=== PATIENT | female | born 1945 | race Caucasian/White ===

== ENCOUNTER 2024-07-31 09:34 | Outpatient (AMB) | payer OTHER, SELFPAY ==
--- NOTE | 2024-07-31 09:47 | A.OFFVIS_ITS ---
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 Intake Note: New patient dx afib c/o fatigue and sob Telecommunications Project Manager Required: No Chief Strategy Officer: Chief Strategy Officer Present Accompanied by: Sister Allergies No Known Allergies Allergy (Verified 07/31/24 10:00) Medication List - Last Reconciled 07/31/24 by Fidencio Shabazz MD amlodipine (Norvasc) 5 mg PO DAILY apixaban (Eliquis) 5 mg PO BID cholecalciferol (vitamin D3) 50 mcg PO DAILY furosemide 20 mg PO DAILY gabapentin 300 mg PO TID losartan-hydrochlorothiazide 100-12.5 mg 1 tab PO DAILY metoprolol succinate ER 25 mg PO DAILY mirabegron ER (Myrbetriq) 50 mg PO DAILY omega 5-aoj-rrm-fish oil 1,200 (144-216) mg (Fish Oil) caps PO sertraline 200 mg PO DAILY HPI Comments Details: Thank you for referring Jane in cardiology consultation today for management of atrial fibrillation. She is a pleasant 78-year-old female with prior history of longstanding hypertension, sleep apnea on CPAP, obesity, hip and back arthritis which limits her activity level, has been having symptoms of palpitations mostly at nighttime which wakes her up sometimes. This is been going on for about a year. She initially had a Holter monitor which did not show any significant abnormality. She had subsequent Holter monitor which confirmed atrial fibrillation with a total burden of 3%. She was appropriately started on apixaban therapy. She self took herself off aspirin therapy. She has prior history of bilateral carotid endarterectomy, last 1 done in 2018. She said the last follow-up was about 1-2 years ago further carotid ultrasound. He has no prior history of heart failure, coronary artery disease, myocardial infarction, diabetes. She has no prior history of stroke. She said over the last 6 months or so she has been getting increasingly fatigued. He says symptoms are mostly of fatigue but when where she does work around the house she gets tired. She denies any exertional chest pain or shortness of breath. She denies any history of orthopnea, PND, leg edema. She takes all her medications regularly. She denies any bleeding issues or neurologic events. She says over the last 3 weeks she has tried dietary restriction has lost about 13 lb [facility] Medical History (Updated 07/31/24 @ 10:42 by Fidencio Shabazz MD) Paroxysmal atrial fibrillation Surgical History (Updated 07/31/24 @ 10:42 by Fidencio Shabazz MD) S/P carotid endarterectomy History of carotid endarterectomy Hx of tonsillectomy Family History Father Aortic valve defect Sister Aortic valve defect Mother Afib Social History Patient Tobacco Use Status: Never used Tobacco Review of Systems Const Denies chills, Denies daytime sleepiness, Denies fatigue, Denies fever(s), Denies frequent falls, Denies poor appetite, Denies snoring, Denies stops breathing during sleep, Denies weakness, Denies weight gain and Denies weight loss Eyes Denies loss of vision ENT Denies dizziness and Denies hearing loss Card Denies chest pain, Denies claudication, Denies leg edema, Denies lightheadedness, Denies palpitations, Denies dyspnea, Denies dyspnea on exertion and Denies orthopnea Resp Denies cough, Denies excessive phlegm production, Denies dyspnea, Denies dyspnea on exertion, Denies snoring and Denies wheezing GI Denies abdominal pain, Denies hematochezia, Denies change in bowel habits, Denies nausea and Denies vomiting Denies urinary frequency and Denies dysuria Musc Denies arthralgias, Denies muscle weakness, Denies numbness and Denies other (frequent falls) Skin/Breast Denies nail changes and Denies rash Neuro Denies Abnormal speech present, Denies dizziness, Denies frequent falls, Denies loss of vision, Denies memory loss, Denies numbness and Denies weakness Psych Denies depression and Denies memory loss Endo Denies fatigue and Denies palpitations Gumaro/Lymph Reports easy bruising and Reports other (anemia) Aller/Immun Denies wheezing Physical Exam Vital Signs: Last Vital Signs Pulse 69 07/31/24 09:53 BP 140/82 H 07/31/24 09:53 BMI result Body Mass Index 38.0 Const General: cooperative, comfortable, no acute distress, alert and awake Nutritional Appearance: obese Orientation/consciousness: patient oriented x3 Limitations: no limitations HEENT Head: Yes normocephalic and Yes atraumatic Neck Neck: Yes trachea midline, Yes supple and Yes no JVD Carotids: no bruits and other (Bilateral carotid endarterectomy scars) Resp Effort & Inspection: normal respiratory effort Auscultation: clear to auscultation bilaterally Cardio Jugular venous distension: no JVD Palpation: normal PMI Rate: regular rate Rhythm: regular rhythm Heart sounds: S1 normal heart sound present, S2 normal heart sound present, no click, no gallops, no murmurs and no rubs GI Inspection: Yes obesity Auscultation: normal bowel sounds Skin General skin exam: no rashes or lesions noted Neuro General: patient oriented x3 and no focal motor deficits Speech: No Abnormal speech present Extrem General: Yes no clubbing, cyanosis or edema Psych Appearance: grossly normal Office Procedures EKG Details: EKG shows normal sinus rhythm with normal EKG 58449-[id number], Complete Assessment & Plan Assessment & Plan (1) Paroxysmal atrial fibrillation: Code(s): I48.0 - Paroxysmal atrial fibrillation Category: Medical Plan: Patient's symptoms of palpitation mostly happening at nighttime, more recently symptoms have been control. Patient has been losing weight. She has risk factors of hypertension, obesity as sleep apnea to contribute to her atrial fibrillation burden. However she is trying to participate in weight loss program right now. I have also suggested to reach out to her sleep apnea center to assess for adequate sleep apnea therapy which might be contributing to his symptoms of fatigue. Continue metoprolol therapy. As symptoms have improved currently I would avoid any antiarrhythmic drug therapy. Will suggest underlying evaluation for structural heart disease given symptoms of fatigue and shortness of breath with exercise. Would suggest to undergo exercise myocardial perfusion imaging and an echocardiogram. This is to evaluate for myocardial ischemia which may guide therapy in terms of her symptoms as well as to guide antiarrhythmic drug therapy. Echocardiogram to evaluate biatrial chamber size as well as left ventricular systolic and diastolic function to guide therapy. Meanwhile I agree with full oral anticoagulation Eliquis. CHADSVASC score of 5. Benefits with oral anticoagulation therapy was discussed. She does not require dual therapy and I agree with stopping aspirin therapy at this point time. Continue metoprolol therapy. Avoidance of stimulants such as caffeine and alcohol was discussed. She understands agrees. If she remains significantly symptomatic, will guide and managed with antiarrhythmic drug therapy if needed. This was discussed with her. She understands and agrees. (2) S/P carotid endarterectomy: Code(s): Z98.890 - Other specified postprocedural states Category: Surgical Plan: Status post bilateral carotid endarterectomy. Suggest at least annual carotid duplex to assess for progressive atherosclerotic disease. Continue full oral anticoagulation with Eliquis. Consider high-intensity statin therapy such as atorvastatin 40/80 or rosuvastatin 20/40 mg daily to target goal LDL less than 70 mg/dL. Continue aggressive control blood pressure, see below. (3) HTN (hypertension): Code(s): I10 - Essential (primary) hypertension Category: Medical Plan: Longstanding hypertension which is currently well controlled on current therapy. Importance of good blood pressure control was discussed. Continue current therapy. Advised to monitor blood pressure at home maintain a log. Check with CPAP therapy. Low-salt diet was discussed. Advised to maintain activity and weight loss program. Will follow up in the clinic in 3 months time, sooner p.r.n.. Thank you for allowing me to partake in her care Coding Level of Care Code New Pt Level 4 (89608) Diagnoses Paroxysmal atrial fibrillation I48.0 S/P carotid endarterectomy Z98.890 HTN (hypertension) I10 CPT Codes EKG - CPT: 58551-[id number], Complete ([id number])
[2024-07-31 09:53] VITALS: BP 140/82; PULSE 69; BMI 38.0
== END 2024-07-31 10:34 | disposition home or self-care (01) ==
PROVIDERS: PCP Family Medicine; Visit Provider Internal Medicine Cardiovascular Disease
DX: I48.0 Paroxysmal atrial fibrillation (principal); Z98.890 Other specified postprocedural states; I10 Essential (primary) hypertension
CPT/HCPCS: 93010; 99204

== ENCOUNTER → 2024-07-31 09:34 | Outpatient (BNVA) | payer OTHER, SELFPAY | PROVIDERS: PCP Family Medicine; Visit Provider Internal Medicine Cardiovascular Disease | DX: I10 Essential (primary) hypertension (principal); I48.0 Paroxysmal atrial fibrillation; G47.30 Sleep apnea, unspecified; Z98.890 Other specified postprocedural states; Z99.89 Dependence on other enabling machines and devices | CPT/HCPCS: 93005; 99202 ==

== ENCOUNTER → 2024-11-28 07:44 | Outpatient (REF) | payer MEDICARE, SELFPAY ==
--- OUTSIDE RECORDS SUMMARY | 2024-11-28 07:48 | XMS_ITS | Clinical Summary ---
Author Organization [facility] Address [address] [place] [address] Phone Care Team Providers Care Route Sales Delivery Driver Name Role Phone Dangelo REDMOND RVT Kenneth BISHOP Yu [phone] Conditions or Problems Problem Name Problem Code Onset Date Status Entry Date Provider Comment Standard Description Annotate CAROTID STENOSIS 05982011 (SNOMED CT) Active Amy Londono Carotid artery stenosis Medications Medication Instructions Start Date Stop Date Generic Name NDC Provider ALBUTEROL SULFATE ER TABLET EXTENDED RELEASE 12 HOUR 6 ALBUTEROL SULFATE ER TABLET EXTENDED RELEASE 12 HOUR [id number] Amy Londono [facility] FISH OIL 1000 MG CAPS 6 OMEGA-3 FATTY ACIDS [id number] Amy Morenoms ANIMI-3 1 MG ORAL CAPSULE 6 [id number] GA 3-PHYTOSTER [id number] Amy Londono ADULT ASPIRIN REGIMEN 81 MG TBEC 6 ASPIRIN [id number] Amy Morenoms ATORVASTATIN CALCIUM 80 MG TABS 6 ATORVASTATIN CALCIUM [id number] Amy Morenoms LOSARTAN POTASSIUM-HCTZ 100-12.5 MG TABS 6 LOSARTAN POTASSIUM-HCTZ [id number] Amy Londono AMLODIPINE BESYLATE 5 MG TABS 6 AMLODIPINE BESYLATE [id number] Amy oMrenoms KAPSPARGO SPRINKLE 25 MG CS24 6 METOPROLOL SUCCINATE [id number] Amy Londono SERTRALINE HCL 100 MG TABS 6 SERTRALINE HCL [id number] Amy Bry Medications Administered No information available. Allergies, Adverse Reactions, Alerts Allergy Name Reaction Description Start Date Severity Statu s Provider MARTIN NGUYENJOE Critical Jean kapil Londono Results No information available. Plan of Care No information available. Procedures No information available. Vital Signs No information available. Immunizations No information available. Advance Directives No information available.
--- NOTE | 2024-11-28 07:50 | CA_ITS ---
Acquisition Time: 2024-11-28 08:14:06 Total Exercise Time: 00:02:00 Test Indications: AFIB Medications: SEE H&P Protocol: LEXISCAN Max HR: 94 BPM 65% of Pred: 143 BPM Max BP: 152/70 mmHG Max Work Load: 1.0 METS Pharmacologic stress test with Lexiscan while pt marches in her chair, with reports of nausea, no chest discomfort, with isolated PACs and PVCs, with normotensive response to injection. Nondiagnostic EKG for ischemia. In recovery, pt treated with Aminophylline 75mg to reverse Lexiscan after which nausea resolved. Nuclear images pending. Test reviewed with Dr. Morrell. Referred By: Fidencio Shabazz Electronically Signed By: Waldo Romo
== END ==
LOC: HO.CARD 07:44
PROVIDERS: PCP Family Medicine; Visit Provider Internal Medicine Cardiovascular Disease
DX: R07.9 Chest pain, unspecified (principal); I48.0 Paroxysmal atrial fibrillation
CPT/HCPCS: 93017; J0280; J2785

== ENCOUNTER → 2024-11-28 07:50 | Outpatient (BNV) | payer MEDICARE, SELFPAY | PROVIDERS: PCP Family Medicine | DX: I49.1 Atrial premature depolarization (principal); I49.3 Ventricular premature depolarization | CPT/HCPCS: 78452; 93016; 93018 ==

== ENCOUNTER 2025-02-19 09:13 | Outpatient (AMB) | payer MEDICARE, SELFPAY ==
--- NOTE | 2025-02-19 09:15 | A.OFFVIS_ITS ---
Vital Signs 02/19/25 09:16 Height 5 ft 4 in Weight 204 lb BMI 35.0 BP 130/68 Blood Pressure Location Lt brachial Position Sitting Pulse 70 Pulse Source Pulse Oximeter Intake Visit Reasons: r/s 12/05/24 3 mos followup mibi/echo mibi r/s Allergies No Known Allergies Allergy (Verified 07/31/24 10:00) Medication List - Last Reconciled 02/19/25 by Fidencio Shabazz MD amlodipine (Norvasc) 5 mg PO DAILY apixaban (Eliquis) 5 mg PO BID cholecalciferol (vitamin D3) 50 mcg PO DAILY furosemide 20 mg PO DAILY gabapentin 300 mg PO TID losartan-hydrochlorothiazide 100-12.5 mg 1 tab PO DAILY metoprolol succinate ER 25 mg PO DAILY mirabegron ER (Myrbetriq) 50 mg PO DAILY omega 3-sbl-wvm-fish oil 1,200 (144-216) mg (Fish Oil) caps PO sertraline 200 mg PO DAILY HPI Comments Details: Jane comes for follow-up. She underwent a myocardial perfusion imaging in November which was within normal limits. She had delayed follow-up because of transport. She was still not started on a statin therapy as yet. She had carotid duplex she says which were reported as okay. She continues to have symptoms of irregular heartbeat and palpitations and fluttering in her chest happens regularly and frequently which bothers her. She also gets symptoms of lightheadedness especially when she gets up after she has gone to the bathroom. She has not had a syncopal episodes. She is very worried about the symptoms. She was not no orthopnea, PND, leg edema. No exertional chest pain. She was also not had an echocardiogram as yet. [facility] Medical History Paroxysmal atrial fibrillation Surgical History S/P carotid endarterectomy History of carotid endarterectomy Hx of tonsillectomy Family History Father Aortic valve defect Sister Aortic valve defect Mother Afib Social History Patient Tobacco Use Status: Never used Tobacco Review of Systems Const Denies weakness ENT Denies dizziness Card Denies chest pain, Denies chest pain with activity, Denies syncope, Denies rapid heart rate, Denies pedal edema, Denies edema, Denies leg edema, Denies lightheadedness, Denies palpitations, Denies dyspnea, Denies dyspnea on exertion and Denies orthopnea Resp Denies cough, Denies dyspnea and Denies dyspnea on exertion GI Denies hematochezia and Denies change in stool character Musc Denies abnormal gait, Denies muscle cramps, Denies muscle weakness, Denies numbness, Denies radiating pain into limb and Denies tingling Neuro Denies Abnormal speech present, Denies abnormal gait, Denies dizziness, Denies syncope, Denies numbness, Denies tingling and Denies weakness Endo Denies palpitations Physical Exam Vital Signs: Last Vital Signs Pulse 70 02/19/25 09:16 BP 130/68 02/19/25 09:16 BMI result Body Mass Index 35.0 Const General: cooperative, comfortable, no acute distress, alert and awake Nutritional Appearance: obese Orientation/consciousness: patient oriented x3 Limitations: no limitations HEENT Head: Yes normocephalic and Yes atraumatic Neck Neck: Yes trachea midline, Yes supple and Yes no JVD Carotids: no bruits and other (Bilateral carotid endarterectomy scars) Resp Effort & Inspection: normal respiratory effort Auscultation: clear to auscultation bilaterally Cardio Jugular venous distension: no JVD Palpation: normal PMI Rate: regular rate Rhythm: regular rhythm Heart sounds: S1 normal heart sound present, S2 normal heart sound present, no click, no gallops, no murmurs and no rubs GI Inspection: Yes obesity Auscultation: normal bowel sounds Skin General skin exam: no rashes or lesions noted Neuro General: patient oriented x3 and no focal motor deficits Speech: No Abnormal speech present Extrem General: Yes no clubbing, cyanosis or edema Psych Appearance: grossly normal Assessment & Plan Assessment & Plan (1) Paroxysmal atrial fibrillation: Code(s): I48.0 - Paroxysmal atrial fibrillation Category: Medical Plan: Paroxysmal atrial fibrillation with consistent symptoms of recurrent palpitation irregular heartbeat which are bothersome to her. Will suggest a 30 day event monitor to see if she has recurrent atrial fibrillation. At this point time would also advised her to follow up with echocardiogram. Continue CPAP edi tment for her sleep apnea. Continue aggressive blood pressure control. Continue full oral anticoagulation, currently on Eliquis 5 mg b.i.d. with CHADSVASc score of at least 5. Semi annual renal function test should be pursued. (2) HTN (hypertension): Code(s): I10 - Essential (primary) hypertension Category: Medical Plan: Hypertension which is currently well optimized. She was having some symptoms of orthostatic dizziness. Advised to monitor blood pressure at home maintain a log. Advised to maintain adequate hydration. Orthostatic precautions were discussed. Follow-up in 3 months and check orthostatics at that point time. We discussed about need for statin therapy given her bilateral carotid endarterectomy. Suggest atorvastatin 40 mg daily. Follow-up lipid panel in 2 months time. Target goal LDL less than 70 mg/dL. Will follow up in the clinic in 3 months time, sooner p.r.n.. Thank you for allowing me to partake in her care Orders: Orders CA echo transthoracic complete Today I48.0 - Paroxysmal atrial fibrillation ECG 30 day event monitor Today I48.0 - Paroxysmal atrial fibrillation Lipid Panel 2 Months Z98.890 - Other specified postprocedural states Medications: New atorvastatin 40 mg PO DAILY 30 tabs 5RF I48.0 - Paroxysmal atrial fibrillation Coding Level of Care Code Est Pt Level 4 (78971) Complex EM visit Add On G2211 Diagnoses Paroxysmal atrial fibrillation I48.0 HTN (hypertension) I10
[2025-02-19 09:16] VITALS: BP 130/68; PULSE 70; BMI 35.0
--- OUTSIDE RECORDS SUMMARY | 2025-02-19 10:09 | XMS_ITS | Clinical Summary ---
Author Organization [facility] Address [address] [place] [address] Care Team Providers Care Gift Shop Assistant Name Role Phone Sean Josue MD Primary Care Provider [phone] Santa Chaudhari MD Unavailable [phone] Allergies Active Allergy Reactions Criticality Noted Date Comments Oxycodone-Acetaminophen Hives Medium 07/04/2016 Tyloxapol Other (See Comments) Medium 02/06/2017 Nightmares Medications Medication Sig Dispensed Refills Start Date End Date Status losartan-hydrochlorot hiazide (HYZAAR) 100-12.5 MG per tablet TK 1 T PO ONCE Day. DO not take morning of surgery. 8 06/08/2016 Active sertraline (ZOLOFT) 50 MG tablet Take 100 mg by mouth daily. Take morning of surgery. 06/21/2016 Active albuterol (PROVENTIL HFA; VENTOLIN HFA) 108 (90 BASE) MCG/ACT inhaler Inhale 2 puffs 4 times daily (every 6 hours) as needed for wheezing. Okay to use the morning of surgery as needed. Active atorvastatin (LIPITOR) 80 MG tablet Take 80 mg by mouth nightly. Take night before surgery 06/24/2018 Active fluticasone (FloNASE) 50 mcg/spray nasal spray 1 spray into each nostril as needed for rhinitis or allergies. May use day of surgery if needed. 05/22/2018 Active metoPROLOL SUCCINATE (TOPROL-XL) 25 MG 24 hr tablet Take 25 mg by mouth daily. Take morning of surgery. 04/24/2018 Active amLODIPine (NORVASC) 5 MG tablet Take 5 mg by mouth nightly. Take night before surgery. Active Multiple Vitamins-Minerals ( MACULAR HEALTH PO) Take 1 tablet by mouth daily. Stop 1 week prior to surgery on 08/16/18 Active cyanocobalamin (VITAMIN B-12) 1000 MCG tablet Take 1,000 mcg by mouth nightly. Stop 1 week prior to surgery on 08/16/18 Active aspirin enteric coated (ECOTRIN LOW STRENGTH) 81 MG EC tabletIndications:Ost eoarthritis of left hip, unspecified osteoarthritis type Take 1 tablet (81 mg total) by mouth daily. Resume 09/22/18 after completing 4 weeks Xarelto 28 tablet 09/22/2018 Active clopidogrel (PLAVIX) 75 MG tabletIndications:Ost eoarthritis of left hip, unspecified osteoarthritis type Take 1 tablet (75 mg total) by mouth nightly. Resume on post-op day#3, 08/26/18 3 08/26/2018 Active HYDROmorphone (DILAUDID) 2 MG tabletIndications:Ost eoarthritis of left hip, unspecified osteoarthritis type Take 1-2 tablets (2-4 mg total) by mouth every 3 (three) hours as needed for moderate pain or severe pain. Max Daily Amount: 32 mg 60 tablet 08/24/2018 Active rivaroxaban (XARELTO) 10 MG tabletIndications:Ost eoarthritis of left hip, unspecified osteoarthritis type Take 1 tablet (10 mg total) by mouth every evening with dinner. 28 tablet 08/24/2018 Active Family History Medical History Relation Name Comments Heart disease Father Hypertension Father Hypertension Mother Relation Name Status Comments Father Mother Social History Tobacco Use Types Packs/Day Years Used Date Smoking Tobacco: Former Smokeless Tobacco: Never Comments:Quit 30 yrs ago Alcohol Use Standard Drinks/Week Comments Yes 0 (1 standard drink = 0.6 oz pur e alcohol) less than monthly AUDIT-C Answer Date Recorded Frequency of Alcohol Consumption Monthly or less 08/10/2018 Average Number of Drinks Not on file 018 Frequency of Binge Drinking Not on file 07/22 Sex and Gender Information Value Date Recorded Sex Assigned at Not on file Gender Identity Not on file Sexual Orientation Not on file Last Filed Vital Signs Vital Sign Reading Time Taken Comments Blood Pressure 130/80 09/06/2018 8:50 AM EDT Pulse 98 09/06/2018 8:50 AM EDT Temperature 36.7 ??C (98 ??F) 08/31/2018 10:40 AM EDT Respiratory Rate 18 09/06/2018 8:31 AM EDT Oxygen Saturation 98% 09/06/2018 8:50 AM EDT Inhaled Oxygen Concentration - - Weight 101 kg (222 lb) 08/26/2018 4:12 PM EDT Height 162.6 cm (5' 4 ) 08/26/2018 4:12 PM EDT Body Mass Index 38.11 08/26/2018 4:12 PM EDT Plan of Treatment Health Maintenance Due Date Last Done Comments Hepatitis C Virus Screening 1945 DTaP/Tdap/Td Vaccines (1 - Tdap) 1966 Pneumococcal Vaccines 50+ (1 of 1 - PCV) 1997 Zoster (Shingles) Vaccine (1 of 2) 1997 DXA Bone Density (Females,Ag es 65 and older) 2012 RSV Vaccine 60 years and old er and Patients (1 - 1-dose 75+ series) 2022 Influenza Vaccine 06/20/2024 COVID-19 Vaccine ( - 2023-2 5 season) 2024 Hepatitis B Vaccines Aged Out No long er eligible based on patient's age to complete this topic Medical Devices Implanted Type Area Job Foreman Device Identifier Shelf Expiration Date Model / Serial / Lot Trident Psl Garza Solid Back Acetabular Shell 52mm E Implanted:Qty : 1 on 08/23/2018 by Ramana Crain MD at [facility] Joint Prosthesis Left: Hip JED IRENE [id number] 01/09/2023 540-11-52 E / / [id number] Liner Acetabular Trdnt 10d E 5.9mm 36mm X3 Hip - [id number] Implanted:Qty : 1 on 08/23/2018 by Ramana Crain MD at [facility] Joint Prosthesis Left: Hip JED IRENE [id number] 04/03/2023 623-10-36 E / / [id number] Stem Femoral 111mm Mdlr Acld 127d 6 Taper 35mm Hip Sterl - [id number] Implanted:Qty : 1 on 08/23/2018 by Ramana Crain MD at [facility] Joint Prosthesis Left: Hip JED IRENE [id number] 05/25/2023 1784-9364 / / [id number] Head Femoral +0mm Offset Taper 36mm Hip Blx D V40 Sterl - [id number] Implanted:Qty : 1 on 08/23/2018 by Ramana Crain MD at [facility] Joint Prosthesis Left: Hip JED IRENE [id number] 05/17/2023 6570-0-13 [id number] Advance Directives * Full Code (Latest Code Status on File) Date Activated Date Inactivated Comments 08/23/2018 7:45 PM Care Teams Gift Shop Assistant Relationship Specialty Start Date End Date Sean Josue MD [address] [place] [address] PCP - General Internal Medicine 06/20/16 Santa Chaudhari MD [address] [address] Consulting Provider Surgery, Vascular 08/10/18
--- OUTSIDE RECORDS SUMMARY | 2025-02-19 10:10 | XMS_ITS | Encounter Summary ---
Author Organization [employer] Address [address] [facility] 7t [place] [address] Care Team Providers Care Sales Agent Food Vending Service Name Role Phone Aniyah Hess PLASTIC STRAIGHTENING ROLL OPERATOR Primary Care Provider Encounter Details Date Type Department Care Team (Late st Contact Info) Description 12/30/2024 Orders Only [facility] [address] [place] [address] Provider, Not In System Social History Tobacco Use Types Packs/Day Years Used Date Smoking Tobacco: Never Smokeless Tobacco: Never Alcohol Use Standard Drinks/Week Comments Never 0 (1 standard drink = 0.6 oz pur e alcohol) rare Alcohol Answer Date Recorded How often do you have a drink containing alcohol ? 0 12/24/2024 How many drinks containing a lcohol do you have on a typical day when you are drinking? 0 12/24/2024 How often do you have six or more drinks on one occasion? 0 12/24/2024 Housing Stability Answer Date Recorded What is your housing situation today? I have zachary collins 12/24/[address] you li ve. Do you have problems with any of the following? None of the above 12/24/2024 Food Insecurity Answer Date Recorded Within the past 12 months, y ou worried that your food would run out before you got money to buy more: Never True 12/24/2024 Within the past 12 months,th e food you bought just didn't last and you didn't have enough money to get more: Never True 02/2025 Transportation Answer Date Recorded In the past 12 months, has l ack of transportation kept you from medical appts, meetings, work or from getting things needed for daily living? No 12/24/2024 Intimate Partner Violence Answer Date R ecorded Within the last year, have y ou been afraid of your partner or ex-partner? 2 12/24/2024 Within the last year, have y ou been humiliated or emotionally abused in other ways by your partner or ex-partner? 2 Within the last year, have y ou been kicked, hit, slapped, or otherwise physically hurt by your partner or ex-partner? 2 12/24/2024 Within the last year, have y ou been raped or forced to have any kind of sexual activity by your partner or ex-partner? 2 12/24/2024 Utilities Answer Date Recorded In the past 12 months, has t he electric, gas, oil or water company threatened to shut off services in your home? No 12/24/2024 Depression Answer Date Recorded Patient Health Questionnaire-2 Score 0 12/24/2024 Internet Access Answer Date Recorded Internet Access Q1 Yes 12/24/2024 Internet Access Q2 Not on file 12/24/2024 Comments Unknown Sex and Gender Information Value Date Recorded Sex Assigned at Female 10/07/2024 11:33 AM EST Legal Sex Female 11:29 AM EST Gender Identity Female 10/07/2024 11:33 AM EST Sexual Orientation Straight 10/07/2024 11 :33 AM EST documented as of this encounter Plan of Treatment Not on file documented as of this encounter Procedures Procedure Name Priority Date/Time Associated Diagnosis Comments XR KNEE 3 VIEWS LEFT Routine 12/16/2024 12:[address] PELVIS WO CONTRAST Routine 12/16/2024 12:33 PM EST documented in this encounter Results * XR Knee 3 Views Left (12/16/2024 12:41 PM EST) Anatomical Region Laterality Modality Lower Extremities, Knee Left Radiogra phic Imaging us Not In System Provider IMG XR PROCEDURES Final R esult * CT Pelvis w/o Contrast (12/16/2024 12:33 PM EST) Anatomical Region Laterality Modality Body, Pelvis Computed Tomogra phy us Not In System Provider IMG CT PROCEDURES Final R esult documented in this encounter Visit Diagnoses Not on filedocumented in this encounter Care Teams Sales Agent Food Vending Service Relationship Specialty Start Date End Date Aniyah Hess FNP [address] [facility] [place] [address] PCP - General Family Medicine 10/16/24 documented as of this encounter
--- OUTSIDE RECORDS SUMMARY | 2025-02-19 10:10 | XMS_ITS | Encounter Summary ---
Author Organization [employer] Address [address] [facility] 7t [place] [address] Care Team Providers Care Ends Breakage Clerk Name Role Phone Aniyah Hess BUDGET EXAMINER Primary Care Provider Encounter Details Date Type Department Care Team (Late st Contact Info) Description 02/19/2025 Telephone [facility] [address] [facility] [address] [place] [phone] Aniyah Hess FNP [address] [place] [address] Social History Tobacco Use Types Packs/Day Years [...] on file documented as of this encounter Visit Diagnoses Not on filedocumented in this encounter Care Teams Ends Breakage Clerk Relationship Specialty Start Date End Date Aniyah Hess FNP [address] [facility] [place] [address] PCP - General Family Medicine 10/16/24 documented as of this encounter
--- OUTSIDE RECORDS SUMMARY | 2025-02-19 10:10 | XMS_ITS | Clinical Summary ---
Author Organization [facility] Address [address] [place] [address] Phone Care Team Providers Care Traffic Court Magistrate Name Role Phone Dangelo REDMOND RVT Kenneth BISHOP Yu [phone] Conditions or Problems Problem Name Problem Code Onset Date Status Entry Date Provider Comment Standard Description Annotate CAROTID STENOSIS 85441435 (SNOMED CT) Active Amy Londono Carotid artery stenosis Medications Medication Instructions Start Date Stop Date Generic Name NDC Provider ALBUTEROL SULFATE ER TABLET EXTENDED RELEASE 12 HOUR 6 ALBUTEROL SULFATE ER TABLET EXTENDED RELEASE 12 HOUR [id number] Amy Londono [facility] FISH OIL 1000 MG CAPS 6 OMEGA-3 FATTY ACIDS [id number] Amy Morenoms ANIMI-3 1 MG ORAL CAPSULE 6 [id number] GA 3-PHYTOSTER [id number] Amy Londono ADULT ASPIRIN REGIMEN 81 MG TBEC 6 ASPIRIN 35420233166 Amy Morenoms ATORVASTATIN CALCIUM 80 MG TABS 6 ATORVASTATIN CALCIUM [id number] Amy Morenoms LOSARTAN POTASSIUM-HCTZ 100-12.5 MG TABS 6 LOSARTAN POTASSIUM-HCTZ [id number] Amy Morenoms AMLODIPINE BESYLATE 5 MG TABS 6 AMLODIPINE BESYLATE 50878231671 Amy Morenoms KAPSPARGO SPRINKLE 25 MG CS24 6 METOPROLOL SUCCINATE 82306884848 Amy Londono SERTRALINE HCL 100 MG TABS 6 SERTRALINE HCL 31720996437 Amy Bry Medications Administered No information available. Allergies, Adverse Reactions, Alerts Allergy Name Reaction Description Start Date Severity Statu s Provider MARTIN NGUYENJOE Critical Jean kapil Londono Results No information available. Plan of Care No information available. Procedures No information available. Vital Signs No information available. Immunizations No information available. Advance Directives No information available.
--- OUTSIDE RECORDS SUMMARY | 2025-02-19 10:10 | XMS_ITS | Encounter Summary ---
Author Organization [employer] Address [address] [facility] 7t [place] [address] Care Team Providers Care Machining Department Supervisor Name Role Phone Aniyah Hess HOTEL DESK CLERK Primary Care Provider Reason for Visit * Reason Comments Memory Loss Jane is here to h ave the test for her memory. She requested the test d/t having difficulty at times remembering appts. She takes care of her paraplegic and herself and the appts are getting difficult to remember. Encounter Details Date Type Department Care Team (Late st Contact Info) Description 02/17/2025 9:00 AM EDT Clinical Support [facility] [address] [address] Aniyah Hess FNP [address] [place] [address] Memory loss Social History Tobacco Use Types Packs/Day Years [...] t he electric, gas, oil or water [employer] threatened to shut off services in your [...] AM EST documented as of this encounter Progress Notes * Radha Benz RN - 02/17/2025 9:00 AM EDT Patient presents to the clinic today for MOCA screening per PCP request. Patient is not accompanied by family/caretakers/friends. Explained rules and guidelines to participant per MOCA standards who was able to verbalize understanding. The test was conducted according to MOCA standards/guidelines. Patient scored the following: Visuospatial/Executive: 4 out of 5= Jane did the first task as a separate task instead of a dueltask, she could not understand the direction was to be alternate 1>A>2>B. Namin out of 3 Attention: 6 out of 6 Language:3 out of 3 Abstraction:1 out of 2 Delayed Recall:3 out of 5= remembered 3 of 5 words instant recall but the others no idea. Orientation:6 out of 6 The patient has had > than or = to 12 years of education. Total Score: _26___ out of 30 MOCA sheet to be scanned into chart for provider to review and interpret. Cosigned by TARSHA Brooks at 02/17/2025 8:44 PM EDT * TARSHA Brooks - 02/17/2025 9:00 AM EDT I have reviewed and agree with the contents of this note. Aniyah WILLINGHAM-BC Score of 26/30 indicates mild age related cognitive impairment. Patient will be called to discuss result and significance. documented in this encounter Plan of Treatment Not on file documented as of this encounter Visit Diagnoses Diagnosis Memory loss documented in this encounter Care Teams Machining Department Supervisor Relationship Specialty Start Date End Date Aniyah Hess FNP [address] [place] [address] PCP - General Family Medicine 10/16/24 documented as of this encounter
--- OUTSIDE RECORDS SUMMARY | 2025-02-19 10:10 | XMS_ITS | Encounter Summary ---
Author Organization [employer] Address [address] [facility] [address]t [place] [address] Care Team Providers Care Resident Associate Name Role Phone Aniyah Hess SENIOR PROGRAM ANALYST Primary Care Provider Reason for Visit * Reason Comments Follow-up Patient presents for follow up and discuss moca results. Encounter Details Date Type Department Care Team (Late st Contact Info) Description 02/18/2025 8:20 AM EDT Office Visit [facility] [address] [facility] [address] [place] [address] Aniyah Hess FNP [address] [place] [address] Social History Tobacco Use Types Packs/Day Years [...] AM EST documented as of this encounter Last Filed Vital Signs Vital Sign Reading Time Taken Comments Blood Pressure 126/84 02/18/2025 8:19 AM EDT Pulse 85 02/18/2025 8:19 AM EDT Temperature - - Respiratory Rate - - Oxygen Saturation 96% 02/18/2025 8:19 AM EDT Inhaled Oxygen Concentration - - Weight 92.5 kg (204 lb) 02/18/2025 8:19 AM EDT Height - - Body Mass Index 33.95 12/24/2024 8:54 AM EST documented in this encounter Plan of Treatment Not on file documented as of this encounter Visit Diagnoses Not on filedocumented in this encounter Care Teams Resident Associate Relationship Specialty Start Date End Date Aniyah Hess FNP [address] [facility] [place] [address] PCP - General Family Medicine 10/16/24 documented as of this encounter
--- OUTSIDE RECORDS SUMMARY | 2025-02-19 10:10 | XMS_ITS | Clinical Summary ---
Author Organization [facility] Address [address] [place] [address] Care Team Providers Care Bilingual Hr Generalist Name Role Phone Marty Woodard Primary Care Provider Unav ailable Allergies Active Allergy Reactions Criticality Noted Date Comments Oxycodone-Acetaminophen 05/10/2019 Sulfamethoxazole W-Trimethoprim 04/21 Medications Multiple Vitamin Tab Multiple Vitamin ( 1 (one) Oral Daily) Active -Hx Entry 0 0 8 Active Oxybutynin Chloride (DITROPAN-XL) 10 MG 24 hr tablet Oxybutynin Chloride ER (10MG Oral Daily) Active -Hx Entry 0 0 8 Active Cholecalciferol (Vitamin D) 25 MCG (1000 UT) Tab Vitamin D (1000UNIT Oral Daily) Active -Hx Entry 0 0 8 Active Sertraline HCl (ZOLOFT) 50 MG tablet Sertraline HCl (50MG Oral) Active -Hx Entry 0 0 8 Active Fish Oil (FISH OIL) 1000 MG Cap Fish Oil (1000MG Oral) Active -Hx Entry 0 0 8 Active Albuterol (ProAir HFA) 90 mcg/ACT inhaler ProAir HFA (108 (90 Base)MCG/ACT Inhalation) Active -Hx Entry 0 0 8 Active TraMADol HCl (ULTRAM-ER) 100 MG 24 hr tablet TraMADol HCl ER (100MG Oral) Active -Hx Entry 0 0 8 Active Losartan Potassium-HCTZ (HYZAAR) 100-12.5 MG per tablet Losartan Potassium-HCTZ (100-12.5MG Oral) Active -Hx Entry 0 0 8 Active Aspirin (Aspirin Low Strength) 81 MG chewable tablet Aspirin Low Strength (81MG Oral) Active -Hx Entry 0 0 8 Active Vitamin B-12 (VITAMIN B-12) 1000 MCG tablet Vitamin B-12 (1000MCG 1 (one) Oral Daily) Active -Hx Entry 0 0 8 Active amLODIPine Besylate (NORVASC) 5 MG tablet AmLODIPine Besylate (5MG Oral) Active -Hx Entry 0 0 8 Active Pravastatin Sodium (PRAVACHOL) 40 MG tablet Pravastatin Sodium (40MG Oral) Active -Hx Entry 0 0 8 Active Atorvastatin Calcium (LIPITOR) 40 MG tablet Atorvastatin Calcium (40MG Oral two times daily) Active -Hx Entry 0 0 8 Active Meloxicam (MOBIC) 7.5 MG tablet Meloxicam (7.5MG Oral) Active -Hx Entry 0 0 8 Active Clopidogrel Bisulfate (PLAVIX) 75 MG tablet Clopidogrel Bisulfate (75MG 1 Oral daily) Active -Hx Entry 0 0 8 Active Divalproex Sodium (DEPAKOTE) 250 MG EC tablet Divalproex Sodium (250MG Oral) Active -Hx Entry 0 0 8 Active Metoprolol Succinate (TOPROL-XL) 25 MG 24 hr tablet Metoprolol Succinate ER (25MG Oral) Active -Hx Entry 0 0 8 Active Active Problems Problem Noted Date Diagnosed Date Lives with spouse 05/11/2019 Overview (12/24/2023): Description: Sleep Medicine Migration - Source Name: , living with spouse Depression 05/11/2019 Overview (12/24/2023): Description: Sleep Medicine Migration - Source Name: Depression Obstructive sleep apnea 05/11/2019 Overview (12/24/2023): Description: Sleep Medicine Migration - Source Name: Obstructive sleep apnea; Notes: 12/2015 HSAT: KATERIN 17 in general, 16 supine, Medicare AHI: 12, O2 kartik: 73% Sleep related hypoxia 05/11/2019 Overview (12/24/2023): Description: Sleep Medicine Migration - Source Name: Sleep related hypoxia Hypercholesterolemia 05/11/2019 Overview (12/24/2023): Description: Sleep Medicine Migration - Source Name: Hypercholesterolemia DJD (degenerative joint disease) 05/11/2019 Overview (12/24/2023): Description: Sleep Medicine Migration - Source Name: DJD (degenerative joint disease) Seasonal allergies 05/11/2019 Overview (12/24/2023): Description: Sleep Medicine Migration - Source Name: Seasonal allergies History of DVT (deep vein thrombosis) 05/11/2019 Overview (12/24/2023): Description: Sleep Medicine Migration - Source Name: History of DVT (deep vein thrombosis) Obesity (BMI 30-39.9) 05/11/2019 Overview (12/24/2023): Description: Sleep Medicine Migration - Source Name: Obesity (BMI 30-39.9) Cerebral vascular accident 05/11/2019 Overview (12/24/2023): Description: Sleep Medicine Migration - Source Name: Cerebral vascular accident (434.91) Hypertension 05/11/2019 Overview (12/24/2023): Description: Sleep Medicine Migration - Source Name: Hypertension Social History Tobacco Use Types Packs/Day Years Used Date Smoking Tobacco: Never Assessed Comments:Smoking Status:Toba past due accounts clerk use:Sleep Medicine Migration - Source Name: Tobacco use; Notes: Former smoker Comments Unknown Sex and Gender Information Value Date Recorded Sex Assigned at Not on file Legal Sex Female 2:07 PM EDT Gender Identity Not on file Sexual Orientation Not on file Last Filed Vital Signs Vital Sign Reading Time Taken Comments Blood Pressure 130/70 07/13/2018 9:17 AM EDT LUE/Sitting LUE/Sitting Pulse - - Temperature - - Respiratory Rate 16 07/13/2018 9:16 AM EDT Oxygen Saturation - - Inhaled Oxygen Concentration - - Weight 103 kg (227 lb 4 oz) 07/13/2018 9:16 AM EDT Height 165.1 cm (5' 5 ) 07/13/2018 9:16 AM EDT Body Mass Index 37.82 07/13/2018 9:16 AM EDT Plan of Treatment Health Maintenance Due Date Last Done Comments Hepatitis C Screening 1945 DTaP/Tdap/Td (1 - Tdap) 1965 Pneumococcal 50+ years (1 of 1 - PCV) 1997 Zoster (Shingrix) (1 of 2) 1997 Bone Density 2012 RSV (1 - 1-dose 75+ series) 2022 COVID-19 Vaccine ( - 2023-2 5 season) 2024 Influenza (#1) 2024 HPV Vaccine Aged Out No longer eligi ble based on patient's age to complete this topic Hep A Aged Out No longer eligi ble based on patient's age to complete this topic Hep B Aged Out No longer eligi ble based on patient's age to complete this topic Hib Aged Out No longer eligi ble based on patient's age to complete this topic Mammogram/Breast Imaging Discontinued Meningococcal ACWY Aged Out No longer eligible based on patient's age to complete this topic Pap Smear Discontinued Zoster (Zostavax) Discontinued Care Teams Bilingual Hr Generalist Relationship Specialty Start Date End Date Marty Woodard PCP - General 06/26/23
--- OUTSIDE RECORDS SUMMARY | 2025-02-19 10:10 | XMS_ITS | Patient Health Record ---
Author Organization [facility] Address [address] [place], [place] [id number] Care Team Providers Care Sessions Clerk Name Role Phone Christiano Holt MD Primary Care Provider UnavailDharmesh Diaz Unavailable [phone] Brandon Jurado Unavailable [phone] Rosana Reeves Unavailable [phone] Allergies Allergen (clinical drug ingredient) Drug/Non Drug Allergy documented on EMR Reaction Allergy Type Onset Date Status sulfamethoxazole / trimethoprim Bactrim Unknown Drug Allergy Active Reason For Referral No Information Medications Medication SIG (Take, Route, Frequency, Duration) Notes Start Date End Date Status Losartan Potassium-HCTZ 100-25 MG 1 tablet Orally Once a day 12.5 Active Sertraline HCl 200 MG 1 capsule Orally O nce a day for 30 day(s) 2x aday Active Vitamin D Delta D3 2000 unit Active Fish Oil 1000 MG 1 capsule Orally Onc e a day for 30 day(s) Active oxyBUTYnin Chloride ER 10 MG 1 tablet Orally Once a day for 30 day(s) Not-Taking Metoprolol Succinate 25 MG 1 tablet By mouth Once a day Active Furosemide 20 MG 1 tablet Orally Once a day for 30 day(s) PRN Active amLODIPine Besylate 5 MG 1 tablet Orally Once a day Active Atorvastatin Calcium 80 MG 1 tablet Orally Once a day for 30 day(s) Active Gabapentin 300 MG 1 capsule Orally Onc e a day 3X day Active Aspir-81 Active Social History Tobacco Use: Social History Observation Description Date Details (start date - stop date) Never Smoker NA - NA Tobacco Question Answer Notes Are you a: never smoker Problems Problem Type SNOMED Code ICD Code Onset Dates Problem Status W/U Status Risk Notes Problem Snoring (43443014) Snoring (R06.83) Active confirmed Problem Obstructive sleep apnea syndrome (45270257) ELENO (obstructive sleep apnea) (G47.33) Active confirmed Problem Hypertension (92670658) HTN (hypertension) (I10) Active confirmed Problem Sleep disturbance (44841736) Sleep disturbance (G47.9) Active confirmed Problem Fatigue (56103964) Fatigue (R53.83) Active confirmed Vital Signs Heart Rate 69 /min 08/08/2024 Temperature 96.4 degrees Fahrenheit 08/08/2024 Respiratory Rate 16 /min 08/08/2024 Blood pressure diastolic 70 mm Hg 08/08/2024 Blood pressure systolic 138 mm Hg 08/08/2024 Weight 237 lbs 08/08/2024 Encounters Encounter Location Date Provider Diagnosis [address] [id number] 08/08/2024 Rosana Reeves ELENO (obstructive sleep apnea) G47.33 ; Snoring R06.83 ; Fatigue R53.83 and HTN (hypertension) I10 [address] [id number] 04/03/2024 Brandon Jurado [address] [id number] 07/31/2024 Rosana Reeves [address] [id number] 08/01/2024 Christiano Holt Assessments Encounter Date Diagnosis (ICD Code) Assessment Notes Treatment Notes Treatment Clinical Notes Section Notes 08/08/2024 ELENO (obstructive sleep apnea) (ICD-10 - G47.33) Excellent compliance and good benefit from therapy. AHI within normal range, ELENO being well treated. Will order for new mask airfit f30 at this time. Continue nightly use of CPAP. I have asked her to contact me with any questions, concerns or worsened symptoms. 08/08/2024 Snoring (ICD-10 - R06.83) Improved on CPAP 08/08/2024 Fatigue (ICD-10 - R53.83) Improved with CPAP, advised not to drive if sleepy 08/08/2024 HTN (hypertension) (ICD-10 - I10) Plan Of Treatment Future Test Test Name Order Date Home sleep study 05/12/2022 Next Appt Details Provider Name:Rosana figueredo, 08/08/2025 11:15:00 AM, [address] [facility], [address], [place], [place], [id number], Insurance Providers Payer Name Payer Address Payer Phone Subscriber Number Group Number Insured Name Patient Relationship to Insured Coverage Start Date Coverage End Date [facility] Plan [address] [facility] [place] [address] [phone] [id number] Jane Martinez Self - patient is the insured Medical (General) History Medical History History ICD Code ELENO HTN Leg swelling HLD Depression Arthritis Atrial fibrillation Surgical History Surgery Date(Month/Year) Hip replacement 2014 Neck surgery/plate Knee surgery Carotid artery surgery Hospitalization History Reason Date(Month/Year) TIA
--- OUTSIDE RECORDS SUMMARY | 2025-02-19 10:11 | XMS_ITS ---
Author Organization [facility] Address [address] [place], [place] [id number] Care Team Providers Care Engineering Clerk Name Role Phone Christiano Holt MD Primary Care Provider Dharmesh Reyez Unavailable [phone] Rosana Reeves Unavailable [phone] Allergies Allergen (clinical drug ingredient) Drug/Non Drug Allergy documented on EMR Reaction Allergy Type Onset Date Status sulfamethoxazole / trimethoprim Bactrim Unknown Drug Allergy Active REASON FOR VISIT Follow up CPAP Medications Medication SIG (Take, Route, Frequency, Duration) Notes Start Date End Date Status Sertraline HCl 200 MG 1 capsule Orally O nce a day for 30 day(s) 2x aday Active oxyBUTYnin Chloride ER 10 MG 1 tablet Orally Once a day for 30 day(s) Not-Taking Furosemide 20 MG 1 tablet Orally Once a day for 30 day(s) PRN Active Atorvastatin Calcium 80 MG 1 tablet Orally Once a day for 30 day(s) Active Gabapentin 300 MG 1 capsule Orally Onc e a day 3X day Active Losartan Potassium-HCTZ 100-25 MG 1 tablet Orally Once a day 12.5 Active Vitamin D Delta D3 2000 unit Active Metoprolol Succinate 25 MG 1 tablet By mouth Once a day Active amLODIPine Besylate 5 MG 1 tablet Orally Once a day Active Aspir-81 Active Fish Oil 1000 MG 1 capsule Orally Onc e a day for 30 day(s) Active Social History Tobacco Use: Social History Observation Description Date Details (start date - stop date) Never Smoker NA - NA Tobacco Question Answer Notes Are you a: never smoker Vital Signs Weight 237 lbs 08/08/2024 Blood pressure systolic 138 mm Hg 08/08/20 24 Blood pressure diastolic 70 mm Hg 024 Heart Rate 69 /min 08/08/2024 Respiratory Rate 16 /min 08/08/2024 Temperature 96.4 degrees Fahrenheit 08/08/20 24 Encounters Encounter Location Date Provider Diagnosis [facility] [address] [place], [place] [id number] 08/08/2024 Rosana Reeves ELENO (obstructive sleep apnea) G47.33 ; Snoring R06.83 ; Fatigue R53.83 and HTN (hypertension) I10 Assessments Encounter Date Diagnosis (ICD Code) Assessment [...] (hypertension) (ICD-10 - I10) Plan Of Treatment Medication Medication Name Sig Start Date Stop Date Notes Losartan Potassium-HCTZ 100- 25 MG 1 tablet Orally Once a day 12.5 Metoprolol Succinate 25 MG 1 tablet By m outh Once a day amLODIPine Besylate 5 MG 1 tablet Orally Once a day Treatment Notes Assessment Notes ELENO (obstructive sleep apnea) Excellent compliance and good benefit from therapy. AHI within normal range, ELENO being well treated. Will order for new mask airfit f30 at this time. Continue nightly use of CPAP. I have asked her to contact me with any questions, concerns or worsened symptoms. Snoring Improved on CPAP Fatigue Improved with CPAP, advised not to drive if sleepy Next Appt Details Follow Up: one year eleno f/u, compliance and epworth, order airfit f30 mask size medium, send office note to substance abuse rn Dr. Shabazz, Reason: Provider Name:Rosana figueredo, 08/08/2025 11:15:00 AM, [address] [place] [address], [address], [place], [place], [id number], Progress Notes * Jane MARTINEZDOB:[birth year] (78 yo F)Acc No.[id number]:08/08/2024 Patient:?Jane MARTINEZ Provider:?SAMY Porter :1945???Age:78 Y???Sex:Female D ate:08/08/2024 Address:[address] [place] [address], [place] [address] Pcp:Christiano Holt MD Subjective: * Chief Complaints: * ???Follow up CPAP * HPI: ???Obstructive Sleep Apnea:?78 year old female presents with c/o Obstructive sleep apnea?HST done 06/2022 showed moderate ELENO with AHI of 17. She is currently using CPAP therapy with settings [id number]. She has a new diagnosis of atrial fibulation, following with [facility] Dr. Shabazz.She continues to use a full face mask but does not like this mask and notes there is an air leak.?The patient usually goes to bed at?9-11pm, and usually arises at 7-8am. Denies naps.?Narcolepsy symptoms?including cataplexy, paralysis and hallucinations are denied.?The patient denies?alcohol before bedtime, periodic leg movements during sleep, sleep talking, sleep walking.?[place] sleepiness scale:?Sitting and reading?3.?Watching TV?3.?Sitting inactive in a public place?0.?Being a passenger in car longer than 1 hour?0.?Lying down in the afternoon?3.?Sitting and Talking with someone?0.?Sitting quietly after lunch (no alcohol)?3.?Stopped for a few minutes in traffic while driving?0.?Total?12.? * ROS:?Follow up ROS 2:?General?No fever, chills, sweats, No excessive fatigue, Appetite good, weight stable.?EENT?No change in vision, No ocular discharge or pruritis, No change in hearing, Sense of smell/taste intact, No sore throat.?Cardiac?No chest pain, pressure or tightness, No extremity edema, No lightheadedness, No orthopnea or PND.?Respiratory?No dyspnea, wheezing, chest tightness, cough or sputum production.?GI?No abdominal pain, nausea, vomiting or diarrhea. No sx of VIJAY.?Musculoskeletal?No acute arthralgias or myalgias.?Dermatologic?No rash, eczema or urticaria.?Neurologic?No headache or dizziness.?Psychiatric?No complaint of depression or anxiety.?Hematology/Lymph?No swollen glands, No easy bruising.?Actively smoking?No.??Negative.? * Medical History:? * Surgical History:?Hip replac ement 2015Neck surgery/plate Knee surgery Carotid artery surgery * Hospitalization/Major Diagno stic Procedure:?TIA * Family History:?Father: dece ased, diagnosed with Hypertension, Heart Disease.?Mother: , diagnosed with Hypertension.? * Social History:?Marital stat us: . Tobacco?Are you a:?never smoker.? * Medications:?TakingFish Oil 1000 MG Capsule 1 capsule Orally Once a day Vitamin D Delta D3 2000 unit Aspir-81 Gabapentin 300 MG Capsule 1 capsule Orally Once a day , Notes to Pharmacist: 3X dayAtorvastatin Calcium 80 MG Tablet 1 tablet Orally Once a day Furosemide 20 MG Tablet 1 tablet Orally Once a day , Notes to Pharmacist: PRNSertraline HCl 200 MG Capsule 1 capsule Orally Once a day , Notes to Pharmacist: 2x adayamLODIPine Besylate 5 MG Tablet 1 tablet Orally Once a day Metoprolol Succinate 25 MG Tablet 1 tablet By mouth Once a day Losartan Potassium-HCTZ 100- 25 MG Tablet 1 tablet Orally Once a day , Notes to Pharmacist: 12.5Taking Fish Oil 1000 MG Capsule 1 capsule Orally Once a day Taking Vitamin D Delta D3 2000 unit Taking Aspir-81 Taking Gabapentin 300 MG Capsule 1 capsule Orally Once a day , Notes to Pharmacist: 3X dayTaking Atorvastatin Calcium 80 MG Tablet 1 tablet Orally Once a day Taking Furosemide 20 MG Tablet 1 tablet Orally Once a day , Notes to Pharmacist: PRNTaking Sertraline HCl 200 MG Capsule 1 capsule Orally Once a day , Notes to Pharmacist: 2x adayTaking amLODIPine Besylate 5 MG Tablet 1 tablet Orally Once a day Taking Metoprolol Succinate 25 MG Tablet 1 tablet By mouth Once a day Taking Losartan Potassium-HCTZ 100-25 MG Tablet 1 tablet Orally Once a day , Notes to Pharmacist: 12.5Not-Taking/PRNoxyBUTYnin Chloride ER 10 MG Tablet Extended Release 24 Hour 1 tablet Orally Once a day Medication List reviewed and reconciled with the patientNot-Taking/PRN oxyBUTYnin Chloride ER 10 MG Tablet Extended Release 24 Hour 1 tablet Orally Once a day Medication List reviewed and reconciled with the patient * Allergies:?Bactrimno[Allergi es Verified] Objective: * Vitals:?Wt: 237, BP:138/70, HR: 69, RR: 16, O2 sat: 96%RA, Temp: 96.4. * Examination: ???General Physical Exam: ?General Appearance:?in no acute distress.?Eyes?Conjunctiva not injected, Sclera not icteric, EOMI, PERRL.?Ears?No significant abnormalities, bilaterally.?Nose?No significant mucosal congestion (normal mucosa). No nasal discharge. No nasal polyps seen.?Sinuses?Non tender.?Oral cavity?No significant abnormalities appreciated.?The hypopharynx?Normal in appearance; no erythema or exudate.?Neck Supple, JVP is normal, no masses, thyroid is normal.?Chest?Normal shape and expansion with respiration.?Lungs?Respiratory rate is normal, Breath sounds are clear bilaterally. Heart:?Normal rate, regular rhythm, Normal S1, normal S2, no murmurs, rub, gallop.?Extremities?No digital clubbing, acrocyanosis or peripheral edema.?Lymph?No cervical, submandibular or supraclavicular adenopathy.?Skin:?Warm and dry, No rash on partial skin exam.?Vascular:?Peripheral pulses intact bilaterally.?Neuro:?A & O x 3, Grossly nonfocal motor and sensory exam.?Data?All data and notes provided were personally reviewed.?Data: ?Miscellaneous?Compliance data from 07/09-08/07/24 was reviewed and revealed 100% usage with >4hrs usage of 100%; overall AHI was 1.4 ?Time spent for the visit is 32 minutes including face to face contact with the patient, review and analysis of data and documentation.? Assessment: * Assessment: 1.?ELENO (obstructive sleep ap aleah) - G47.33 (Primary)?2.?Snoring - R06.83?3.?Fatigue - R53.83?4.?HTN (hypertension) - I10? Plan: * Treatment: 2.?Snoring? Notes: Improved on CPAP?? 3.?Fatigue? Notes: Improved with CPAP, advised not to drive if sleepy?? 4.?HTN (hypertension)? Continue amLODIPine Besylate Tablet, 5 MG, 1 tablet, Orally, Once a day;?Continue Metoprolol Succinate Tablet, 25 MG, 1 tablet, By mouth, Once a day;?Continue Losartan Potassium-HCTZ Tablet, 100-25 MG, 1 tablet, Orally, Once a day, Notes to Pharmacist: 12.5.?? * Procedure Codes:? * Preventive Medicine:? ??Counseling:?DIET -?Above Normal BMI Follow-up?Giving encouragement to exercise.? * Follow Up:?one year eleno f/u, compliance and epworth, order airfit f30 mask size medium, send office note to substance abuse rn Dr. Shabazz * Images: * Sign off status: Completed true * Provider:?SAMY Porter Date:?0 08/08/2024 Generated for Krystle dubose/Teofilo/Sydney on:?02/19/2025 10:11 AM EDT History and Physical Notes * HPI (History of Present Illness) Category Sub-Category Detail Notes Category Not es Obstructive Sleep Apnea The patient hari foy goes to bed at 9-11pm, and usually arises at 7-8am. Denies naps The patient denies alcohol before bedti me, periodic leg movements during sleep, sleep talking, sleep walking Obstructive sleep apnea HST done 06/2022 showed moderate ELENO with AHI of 17. She is currently using CPAP therapy with settings [id number]. She has a new diagnosis of atrial fibulation, following with [facility] Dr. Shabazz.She continues to use a full face mask but does not like this mask and notes there is an air leak Narcolepsy symptoms including cataplexy, paralysis and hallucinations are denied [place] sleepiness scale Sitting and reading 3 Watching TV 3 Sitting inactive in a public place 0 Being a passenger in car longer than 1 h our 0 Lying down in the afternoon 3 Sitting and Talking with someone 0 Sitting quietly after lunch (no alcohol) 3 Stopped for a few minutes in traffic whi le driving 0 Total 12 Examination Category Sub-Category Detail Notes Category Not es General Physical Exam Eyes Conjunctiv a not injected, Sclera not icteric, EOMI, PERRL Neck Supple, JVP is greg l, no masses, thyroid is normal Heart: Normal rate, regular rhythm, Normal S1, normal S2, no murmurs, rub, gallop Lungs Respiratory rate is normal, Breath sounds are clear bilaterally General Appearance: in no acute distress Oral cavity No significant abnor malities appreciated Chest Normal shape and exp ansion with respiration Extremities No digital clubbing, acrocyanosis or peripheral edema Ears No significant abnor malities, bilaterally Nose No significant mucos al congestion (normal mucosa). No nasal discharge. No nasal polyps seen The hypopharynx Normal in appearance ; no erythema or exudate Sinuses Non tender Skin: Warm and dry, No balwinder h on partial skin exam Neuro: A & O x 3, Grossly n onfocal motor and sensory exam Vascular: Peripheral pulses in tact bilaterally Lymph No cervical, submand ibular or supraclavicular adenopathy Data All data and notes p rovided were personally reviewed Data Miscellaneous Compliance data from 07/09-08/07/24 was reviewed and revealed 100% usage with >4hrs usage of 100%; overall AHI was 1.4 Time spent for the visit is 32 minutes including face to face contact with the patient, review and analysis of data and documentation
--- OUTSIDE RECORDS SUMMARY | 2025-02-19 10:11 | XMS_ITS | Encounter Summary ---
Author Organization [employer] Address [address] [place] [address] Care Team Providers Care Bay Stocker Name Role Phone Aniyah Hess [employer] Primary Care Provider Encounter Details Date Type Department Care Team (Late st Contact Info) Description 12/25/2024 Telephone [facility] [address] [place] [id number] Aniyah Hess FNP [address] [place] [address] Social History Tobacco Use Types [...] AM EST documented as of this encounter Miscellaneous Notes * Telephone Encounter - Saul Casey - 12/25/2024 12:14 PM EST Printed hip X-ray from [facility], placed in scanning * Telephone Encounter - Genna Linn - 12/25/2024 11:13 AM EST Jane left VM states Aniyah Romero wanted her to get an Xray on hip, but she remembered they did an Xray at [facility] and she called them to have them mail a copy over to Aniyah Maldonadofor Aniyah to look at. Call back #[phone] documented in this encounter Plan of Treatment Not on file documented as of this encounter Visit Diagnoses Not on filedocumented in this encounter Care Teams Bay Stocker Relationship Specialty Start Date End Date Aniyah Hess FNP [address] [facility] [place] [address] PCP - General Family Medicine 10/16/24 documented as of this encounter
--- OUTSIDE RECORDS SUMMARY | 2025-02-19 10:11 | XMS_ITS | Clinical Summary ---
Author Organization [employer] Address [address] [facility] 7[address] [place] [address] Care Team Providers Care Beet End Supervisor Name Role Phone Aniyah Hess ARBITRATOR Primary Care Provider Allergies Active Allergy Reactions Criticality Noted Date Comments Oxycodone Other Medium 10/11/2024 nightmares Sulfamethoxazole-Trimethoprim Unknown Medium 2018 Tyloxapol Other Medium 02/06/2017 Nightmares Medications ProAir HFA 108 (90 Base) MCG/ACT inhaler Inhale. 07/13/2018 Act carlton amLODIPine (Norvasc) 5 MG tablet Take by mouth. 07/13/2018 Active gabapentin (Neurontin) 300 MG capsule Take 3 capsules by mouth every 6 (six) hours during the day. 07/03/2024 Active losartan-hydroC HLOROthiazide (Hyzaar) 100-12.5 MG tablet Take by mouth. 06/08/2016 Active metoprolol succinate XL (Toprol-XL) 25 MG 24 hr tablet Take by mouth. 04/24/2018 Active Myrbetriq 50 MG 24 hr tablet Take 1 tablet by mouth Once per day. 06/19/2024 Active omega-3 (Fish Oil) 1000 MG capsule Take by mouth. 07/13/2018 Active sertraline (Zoloft) 100 MG tablet Take 2 tablets by mouth in the morning. 09/27/2024 Active timolol (Timoptic) 0.5 % ophthalmic solution INSTILL 1 DROP INTO LEFT EYE IN THE MORNING 08/04/2024 Active furosemide (Lasix) 20 MG tablet 20 mg Once per day. As needed Active acetaminophen-c odeine (Tylenol w/ Codeine #4) 300-60 MG tablet 1 tablet 2 times daily. Prn hip pain Active metFORMIN XR (Glucophage-XR) 500 MG 24 hr tablet Take 2 tablets (1,000 mg) by mouth with evening meal. Do not crush, chew, or split. 360 tablet 12/25/2024 Active Eliquis 5 MG tablet Take 1 tablet (5 mg) by mouth 2 times daily. 180 tablet 3 01/03/2025 Active Active Problems Problem Noted Date Diagnosed Date Chronic atrial fibrillation 12/24/2024 Sleep related hypoxia 05/11/2019 Overview (12/24/2024): Description: Sleep Medicine Migration - Source Name: Sleep related hypoxia Obstructive sleep apnea 05/11/2019 Overview (12/24/2024): Description: Sleep Medicine Migration - Source Name: Obstructive sleep apnea; Notes: 12/2015 HSAT: KATERIN 17 in general, 16 supine, Medicare AHI: 12, O2 kartik: 73% Seasonal allergies 05/11/2019 Overview (12/24/2024): Description: Sleep Medicine Migration - Source Name: Seasonal allergies Obesity (BMI 30-39.9) 05/11/2019 Overview (12/24/2024): Description: Sleep Medicine Migration - Source Name: Obesity (BMI 30-39.9) Hypertension 05/11/2019 Overview (12/24/2024): Description: Sleep Medicine Migration - Source Name: Hypertension Hypercholesterolemia 05/11/2019 Overview (12/24/2024): Description: Sleep Medicine Migration - Source Name: Hypercholesterolemia History of DVT (deep vein thrombosis) 05/11/2019 Overview (12/24/2024): Description: Sleep Medicine Migration - Source Name: History of DVT (deep vein thrombosis) DJD (degenerative joint disease) 05/11/2019 Overview (12/24/2024): Description: Sleep Medicine Migration - Source Name: DJD (degenerative joint disease) Depression 05/11/2019 Overview (12/24/2024): Description: Sleep Medicine Migration - Source Name: Depression Cerebral vascular accident 05/11/2019 Overview (12/24/2024): Description: Sleep Medicine Migration - Source Name: Cerebral vascular accident (434.91) Encounters Date Type Department Care Team Description 02/19/2025 Telephone [facility] [address] [facility] [address] [place] [address] Aniyah Hess, TARSHA 02/18/2025 8:20 AM EDT Office Visit [address] [place] [address] Aniyah Hess, TARSHA 02/17/2025 9:00 AM EDT Clinical Support [address] [place] [address] Aniyah Hess, TARSHA Memory loss 01/03/[address] [place] [address] Aniyah Hess, TARSHA 01/02/2025 Refill [facility] [address] [facility] [place] [address] Aniyah Hess, TARSHA 12/30/2024 Orders Only [facility] Information Management [address] [place] [address] [place] [address] Provider, Not In System 12/25/2024 Telephone [facility] [address] [facility] [place] [address] Aniyah Hess, TARSHA 12/25/2024 Refill [facility] [address] [facility] [place] [address] Aniyah Hess, TARSHA 12/24/2024 8:20 AM EST Office Visit [facility] [address] [facility] [address] [place] [address] Aniyah Hess, TARSHA Encounter for immunization (Primary Dx); Chronic atrial fibrillation (CMS/HCC); Screening for depression; Arthritis of right hip; Primary hypertension; Hypercholesterolemia ; Macrocytic anemia; Screening for viral disease; Screening for diabetes mellitus; Chronic pain syndrome 12/16/2024 Orders Only GENERIC EXTERNAL DATA DEPARTMENT Provider, Generic External Data from Last 3 Months Immunizations Name Administration Dates Next Due Influenza High-dose Quadriva lent Preservative Free 09/20/2023,09/20/2022,09/02/2021,08/21 Influenza, High Dose Seasona l, Preservative Free 12/24/2024,08/09/2019,10/24/2018 Influenza, intradermal, quad rivalent, preservative free 10/14/2015,08/21/2014,09/18/2013,08/23,10/18/2010 Pneumococcal Conjugate PCV 13 04/20/2015 Pneumococcal Polysaccharide PPSV23 12/24/2012, RSV Adjuvant 10/26/2023 RSV-MAB, Unspecified 10/26/2023 Tdap 04/20/2015 Zoster, Recombinant 08/29/2020,06/24/2020 Zoster, live 03/16/2015 Social History Tobacco Use Types Packs/Day Years Used Date Smoking Tobacco: Never Smokeless Tobacco: Never Tobacco Cessation:Counseling Given: Not Answered Alcohol Use Standard Drinks/Week Comments Never 0 [...] Orientation Straight 10/07/2024 11 :33 AM EST Last Filed Vital Signs Vital Sign Reading Time Taken Comments Blood Pressure 126/84 02/18/2025 8:19 AM EDT Pulse 85 02/18/2025 8:19 AM EDT Temperature - - Respiratory Rate - - Oxygen Saturation 96% 02/18/2025 8:19 AM EDT Inhaled Oxygen Concentration - - Weight 92.5 kg (204 lb) 02/18/2025 8:19 AM EDT Height 165.1 cm (5' 5 ) 12/24/2024 8:54 AM EST Body Mass Index 33.95 12/24/2024 8:54 AM EST Plan of Treatment Health Maintenance Due Date Last Done Comments COVID-19 Vaccine ( season) 2024 10/26/2023, 07/01/2022, 09/02/2021, Additional history exists DTaP/Tdap/Td Vaccines (2 - Td or Tdap) 04/20/2025 04/20/2015 Alcohol/Substance Use Screening 12/24/2025 12/24/2024 Depression Screening 12/24/2025 12/24/2024, 12/24/19 SDOH Screening 12/24/2025 12/24/2024 Tobacco Screening 02/17/2026 02/17/2025 Lipid Panel 12/24/2029 12/24/2024 Pneumococcal Vaccine: 50+ Years Completed 04/20/2015, 12/24/2012, 11/20/1998 Zoster Vaccines Completed 08/29/2020, 03/2020, 03/16/2015 RSV Patients and Patients Aged 60 years or older Completed 10/26/2023 RSV under 20 months Aged Out 10/26/2023 No longe r eligible based on patient's age to complete this topic Hepatitis C Screening Discontinued 12/24/2024 Influenza Vaccine Completed 12/24/2024, , 09/20/2022, Additional history exists HIB Vaccines Aged Out No longer eligi ble based on patient's age to complete this topic HPV Vaccines Aged Out No longer eligi ble based on patient's age to complete this topic Hepatitis A Vaccines Aged Out No long er eligible based on patient's age to complete this topic Hepatitis B Vaccines Aged Out No long er eligible based on patient's age to complete this topic IPV Vaccines Aged Out No longer eligi ble based on patient's age to complete this topic Meningococcal Vaccine Aged Out No cielo janie eligible based on patient's age to complete this topic Rotavirus Vaccines Aged Out No longer eligible based on patient's age to complete this topic Procedures Procedure Name Priority Date/Time Associated Diagnosis Comments HEPATITIS C AB W/REFL TO HCV RNA, QN, PCR Routine 12/24/2024 9:40 AM EST Primary hypertension Screening for viral disease LIPID PANEL WITH REFLEX TO DIRECT LDL Routine 12/24/2024 9:40 AM EST Hypercholesterolemia HEMOGLOBIN A1C Routine 12/24/2024 9:40 AM EST Screening for diabetes mellitus COMPREHENSIVE METABOLIC PANEL Routine 12/24/2024 9:40 AM EST Primary hypertension HOMOCYSTEINE Routine 12/24/2024 9:40 AM EST Macrocytic anemia METHYLMALONIC ACID Routine 12/24/2024 9: 40 AM EST Macrocytic anemia VITAMIN B12/FOLATE, SERUM PANEL Routine 12/24/2024 9:40 AM EST Macrocytic anemia IRON, TIBC AND FERRITIN PANEL Routine 12/24/2024 9:40 AM EST Macrocytic anemia LACTATE DEHYDROGENASE ISOENZYMES Routine 12/24/2024 9:40 AM EST Macrocytic anemia BILIRUBIN, DIRECT Routine 12/24/2024 9:4 0 AM EST Macrocytic anemia HAPTOGLOBIN Routine 12/24/2024 9:40 AM EST Macrocytic anemia DIRECT ANTIGLOBULIN TEST (ANDI) Routine 12/24/2024 9:40 AM EST Macrocytic anemia CBC (INCLUDES DIFFERENTIAL AND PLATELETS) W/SMEAR REVIEW Routine 12/24/2024 9:40 AM EST Macrocytic anemia RETICULOCYTE COUNT Routine 12/24/2024 9: 40 AM EST Macrocytic anemia XR KNEE 3 VIEWS LEFT Routine 12/16/2024 12:[address] PELVIS WO CONTRAST Routine 12/16/2024 12:[address] PELVIS WO CONTRAST Routine 12/16/2024 12:05 PM EST COMPREHENSIVE METABOLIC PANEL (NON ORDERABLE) Routine 12/16/2024 11:30 AM EST CBC WITH AUTO DIFFERENTIAL Routine 12/16/2024 11:30 AM EST XR KNEE 3 VIEWS LEFT Routine 12/16/2024 10:30 AM EST XR HIPS MARILYN MIN 3V Routine 12/16/2024 10 :30 AM EST from Last 3 Months Results * (ABNORMAL) CBC (includes Differential and Platelets) (REFL) (12/24/2024 9:40 AM EST) White Blood Cell Count 5.7 3.8 - 10.8 Thousand/ uL [facility] [place] [facility] Red Blood Cell Count 3.14(L) 3.80 - 5.10 Million/u L [facility] [place] [facility] Hemoglobin 10.6(L) 11.7 - 15.5 g/dL [facility] [place] [facility] Hematocrit 31.5(L) 35.0 - 45.0 % [facility] [place] [facility] MCV 100.3(H) 80.0 - 100.0 fL [facility] MCH 33.8(H) 27.0 - 33.0 pg [facility] [place] [facility] MCHC 33.7 32.0 - 36.0 g/dL [facility] Comment: For adults, a slight decrease in the calculated MCHC value (in the range of 30 to 32 g/dL) is most likely not clinically significant; however, it should be interpreted with caution in correlation with other red cell parameters and the patient's clinical condition. RDW 13.0 11.0 - 15.0 % [facility] [place] [facility] Platelet Count 269 140 - 400 Thousand/ uL [facility] MPV 11.2 7.5 - 12.5 fL [facility] Absolute Neutrophils 4,326 1,500 - 7,800 cells/uL [facility] Absolute Lymphocytes 901 850 - 3,900 cells/uL [facility] [place] [facility] Absolute Monocytes 319 200 - 950 cells/uL [facility] [place] [facility] Absolute Eosinophils 103 15 - 500 cells/uL [facility] Absolute Basophils 51 0 - 200 cells/uL [facility] [place] [facility] Neutrophils 75.9 % [facility] [place] [facility] Lymphocytes 15.8 % [facility] [place] [facility] Monocytes 5.6 % [facility] [place] [facility] Eosinophils 1.8 % [facility] [employer] [place] [facility] Basophils 0.9 % [facility] [place] [facility] Blood Venous blood specimen / Unknown 12/24/2024 9:40 AM EST 12/24/2024 9:54 AM EST Narrative [facility] - 12/30/2024 8:55 AM EST FASTING:YES FASTING: YES Aniyah Hess ARBITRATOR LAB BLOOD ORDERABLES F inal Result [facility] [address] [facility], [place] [address] [facility] [place] [employer] [address] [place] [address] * Vitamin B12 (Cobalamin) and Folate Panel, Serum (12/24/2024 9:40 AM EST) Pathologist [facility] Vitamin B12 294 200 - 1,100 pg/mL [facility] [place] [facility] Comment: Please Note: Although the reference range for vitamin B12 is 200-1100 pg/mL, it has been reported that between 5 and 10% of patients with values between 200 and 400 pg/mL may experience neuropsychiatric and hematologic abnormalities due to occult B12 deficiency; less than 1% of patients with values above 400 pg/mL will have symptoms. Folate, Serum 9.1 ng/mL [facility] Comment: ? Reference Range ? Low: ? <3.4 ? Borderline: ?3.4-5.4 ? Normal: ?>5.4 Blood 12/24/2024 9:40 AM EST 12/24/2024 9:54 AM EST Narrative [facility] - 12/30/2024 8:55 AM EST FASTING:YES FASTING: YES Aniyah Hess [facility] LAB BLOOD ORDERABLES F inal Result Performing Organization Address City/[facility]/ZIP Co de Phone Number [facility] [address], [place] [address] [facility] [place] [facility] [address] [place] [address] * (ABNORMAL) Lipid Panel with Reflex to Direct LDL (12/24/2024 9:40 AM EST) [facility] Cholesterol, Total 230(H) <200 mg/dL [facility] [place] [facility] HDL Cholesterol 67 > OR = 50 mg/dL [facility] [place] [facility] Triglycerides 112 <150 mg/dL [facility] [place] [facility] LDL Cholesterol 140(H) mg/dL [facility] [employer] [place] [facility] Comment: Reference range: <100 Desirable range <100 mg/dL for primary prevention; ?? <70 mg/dL for patients with CHD or diabetic patients with > or = 2 CHD risk factors. LDL-C is now calculated using the Ji-Phoebe calculation, which is a validated novel method providing better accuracy than the Friedewald equation in the estimation of LDL-C. Ji SS et al. NI. 2013;310(19): 2983-6375 (http://education.[employer]/faq/OLD929) Chol/HDLC Ratio 3.4 <5.0 (calc) [facility] Non-HDL Cholesterol 163(H) <130 mg/dL [facility] [place] [facility] Comment: For patients with diabetes plus 1 major ASCVD risk factor, treating to a non-HDL-C goal of <100 mg/dL (LDL-C of <70 mg/dL) is considered a therapeutic option. Blood 12/24/2024 9:40 AM EST 12/24/2024 9:54 AM EST Narrative [facility] - 12/30/2024 8:55 AM EST FASTING:YES FASTING: YES Aniyah Hess [facility] LAB BLOOD ORDERABLES F inal Result Performing Organization Address City/[facility]/ZIP Co de Phone Number [address], [facility] [place] [address] [facility] [place] [employer] [address] [place] [address] * (ABNORMAL) Iron, TIBC And Ferritin Panel (12/24/2024 9:40 AM EST) Pathologist [facility] Iron, Total 75 45 - 160 mcg/dL [facility] [place] [facility] Iron Binding Capacity 263 250 - 450 mcg/dL (calc) [facility] % Saturation 29 16 - 45 % (calc) [facility] [place] [employer] Ferritin 343(H) 16 - 288 ng/mL [facility] [place] [facility] Blood 12/24/2024 9:40 AM EST 12/24/2024 9:54 AM EST Narrative [facility] - 12/30/2024 8:55 AM EST FASTING:YES FASTING: YES Aniyah Hess [facility] LAB BLOOD ORDERABLES F inal Result Performing Organization Address [facility] Co de Phone Number [address], [place] [address] [facility] [place] [employer] [address] * Hepatitis C Antibody with Reflex to HCV, RNA, Quantitative, Real-Time PCR (12/24/2024 9:40 AM EST) [facility] Hepatitis C Antibody NON-REACT CARLTON NON-REACT CARLTON [facility] [place] [facility] Comment: HCV antibody was non-reactive. There is no laboratory evidence of HCV infection. In most cases, no further action is required. However, if recent HCV exposure is suspected, a test for HCV RNA (test code 95939) is suggested. For additional information please refer to http://education.[employer]/faq/ATL85t3 (This link is being provided for informational/ educational purposes only.) Blood Venous blood specimen / Unknown 12/24/2024 9:40 AM EST 12/24/2024 9:54 AM EST Narrative [facility] - 12/30/2024 8:55 AM EST FASTING:YES FASTING: YES Aniyah Hess [facility] LAB BLOOD ORDERABLES F inal Result Performing Organization Address [facility]/ZIP Co de Phone Number [facility] [address], [facility] [place] [address] [facility] [address] [place] [address] * Methylmalonic Acid (12/24/2024 9:40 AM EST) Methylmalonic Acid 224 69 - 390 nmol/L [facility] Comment: Serum methylmalonic acid (MMA) levels are used to diagnose and monitor several rare inborn errors of metabolism, including methylmalonic aciduria. The enzymatic conversion of MMA to succinic acid requires vitamin B12 (adenosyl-cobalamin) as a cofactor. Serum MMA levels are also used for assessing functional vitamin B12 deficiency. Vitamin B12 is essential for neurodevelopment, particularly early in . Undiagnosed maternal vitamin B12 deficiency may be associated with adverse / outcomes, such as neural tube defects and intrauterine growth restriction. [facility] utilized Multi-Modal Decomposition (MMD) analysis to establish first and second trimester- specific MMA reference intervals in , as given below: MMA, First trimester (<13 wks gestation): 58-167 nmol/L MMA, Second trimester (13-23 wks gestation): 63-241 nmol/L This test was developed and its analytical performance characteristics have been determined by [facility] It has not been cleared or approved by the FDA. This assay has been validated pursuant to the CLIA regulations and is used for clinical purposes. ? Blood Venous blood specimen / Unknown 12/24/2024 9:40 AM EST 12/24/2024 9:54 AM EST Narrative [facility] - 12/30/2024 8:55 AM EST FASTING:YES FASTING: YES Aniyah Hess [facility] LAB BLOOD ORDERABLES F inal Result Performing Organization Address [facility]/ZIP Co de Phone Number [facility] [address] [place] [address], [facility] [place] [address] [facility]/[place] [address] [facility] [place] [address] * Reticulocyte Count (12/24/2024 9:40 AM EST) Pathologist [facility] Reticulocyte Count, Automated 1.9 % [facility] [place] [facility] Reticulocyte, Absolute 59,660 20,000 - 80,000 cells/uL [facility] [place] [facility] Blood Venous blood specimen / Unknown 12/24/2024 9:40 AM EST 12/24/2024 9:54 AM EST Narrative [facility] - 12/30/2024 8:55 AM EST FASTING:YES FASTING: YES [facility]LOOD ORDERABLES F inal Result Performing Organization Address [facility] Co de Phone Number [facility] [address] [place] [phone] [facility] [place] [employer] [address] [place] [phone] * Direct Antiglobulin Test (ANDI) (12/24/2024 9:40 AM EST) Pathologist [facility] Direct Antiglobulin Test (ANDI) NEGATIVE NEGATIVE [facility] [place] [facility] Blood Venous blood specimen / Unknown 12/24/2024 9:40 AM EST 12/24/2024 9:54 AM EST Narrative [facility] - 12/30/2024 8:55 AM EST FASTING:YES FASTING: YES Aniyah Hess [facility] LAB BLOOD ORDERABLES F inal Result Performing Organization Address City/[facility]/ZIP Co de Phone Number [address] [phone] [facility] [place] [employer] [address] [place] [phone] * Lactate Dehydrogenase Isoenzymes (12/24/2024 9:40 AM EST) Pathologist [facility] Lactate dehydrogenase 1 TNP % [facility] Comment: TEST NOT PERFORMED Specimen unsuitable for testing due to hemolysis. Blood Venous blood specimen / Unknown 12/24/2024 9:40 AM EST 12/24/2024 9:54 AM EST Narrative [facility] - 12/30/2024 8:55 AM EST FASTING:YES FASTING: YES Aniyah Hess [facility] LAB BLOOD ORDERABLES F inal Result Performing Organization Address [facility] Co de Phone Number [facility] [address] [place] [address], [facility] [place] [address] [facility] [address] [facility] [place] [address] * (ABNORMAL) Homocysteine (12/24/2024 9:40 AM EST) Homocysteine 17.0(H) <10.4 umol/L [facility] [place] [facility] Comment: Homocysteine is increased by functional deficiency of folate or vitamin B12. Testing for methylmalonic acid differentiates between these deficiencies. Other causes of increased homocysteine include renal failure, folate antagonists such as methotrexate and phenytoin, and exposure to nitrous oxide. Alvin Knight, et al., Estrella Faculty Research Assistant Med. 1999;131(5):331-9. Blood Venous blood specimen / Unknown 12/24/2024 9:40 AM EST 12/24/2024 9:54 AM EST Narrative [facility] - 12/30/2024 8:55 AM EST FASTING:YES FASTING: YES Aniyah Hess [facility] LAB BLOOD ORDERABLES F inal Result Performing Organization Address [facility] Co de Phone Number [facility] [address] [place] [address], [facility] [place] [address] [facility] [place] [facility] [address] [place] [phone] * Hemoglobin A1c (12/24/2024 9:40 AM EST) Hemoglobin A1c 5.6 <5.7 % of total Hgb [facility] [place] [facility] Comment: For the purpose of screening for the presence of diabetes: <5.7% ? Consistent with the absence of diabetes 5.7-6.4% ?Consistent with increased risk for diabetes ?(prediabetes) > or =6.5% ??Consistent with diabetes This assay result is consistent with a decreased risk of diabetes. Currently, no consensus exists regarding use of hemoglobin A1c for diagnosis of diabetes in children. According to [place] Diabetes Association (ADA) guidelines, hemoglobin A1c <7.0% represents optimal control in non- diabetic patients. Different metrics may apply to specific patient populations. Standards of Medical Care in Diabetes(ADA). ?? Blood Venous blood specimen / Unknown 12/24/2024 9:40 AM EST 12/24/2024 9:54 AM EST Narrative [facility] - 12/30/2024 8:55 AM EST FASTING:YES FASTING: YES Aniyah Hess [facility] LAB BLOOD ORDERABLES F inal Result Performing Organization Address City/[facility]/ZIP Co de Phone Number [address] [phone] [facility] [place] [employer] [address] [place] [phone] * (ABNORMAL) Haptoglobin (12/24/2024 9:40 AM EST) Haptoglobin 222(H) 43 - 212 mg/dL [facility] [place] [facility] Blood Venous blood specimen / Unknown 12/24/2024 9:40 AM EST 12/24/2024 9:54 AM EST Narrative [facility] - 12/30/2024 8:55 AM EST FASTING:YES FASTING: YES Aniyah Hess [facility] LAB BLOOD ORDERABLES F inal Result Performing Organization Address City/[facility]/ZIP Co de Phone Number [address] [phone] [facility] [address] [place] [phone] * Bilirubin, Direct (12/24/2024 9:40 AM EST) Bilirubin, Direct 0.1 < OR = 0.2 mg/dL [facility] [place] [employer] [employer] Blood Venous blood specimen / Unknown 12/24/2024 9:40 AM EST 12/24/2024 9:54 AM EST Narrative [facility] - 12/30/2024 8:55 AM EST FASTING:YES FASTING: YES Aniyah Hess [facility] LAB BLOOD ORDERABLES F inal Result [facility] [address], [place] [address] [facility] [place] [facility] [address] [place] [address] * (ABNORMAL) Comprehensive Metabolic Panel (12/24/2024 9:40 AM EST) Pathologist [facility] Glucose 89 65 - 99 mg/dL [facility] [place] [facility] Comment: ? Fasting reference interval Urea Nitrogen (BUN) 18 7 - 25 mg/dL [facility] Creatinine, Serum 1.03(H) 0.60 - 1.00 mg/dL [facility] [place] [facility] Diagnost eGFR 56(L) > OR = 60 mL/min/1. 73m2 [facility] BUN/Creatinine Ratio 17 6 - 22 (calc) [facility] [place] [facility] Sodium 141 135 - 146 mmol/L [facility] Potassium 4.9 3.5 - 5.3 mmol/L [facility] Chloride 102 98 - 110 mmol/L [facility] [place] [facility] Carbon Dioxide 28 20 - 32 mmol/L [facility] [place] [facility] Calcium 9.5 8.6 - 10.4 mg/dL [facility] [place] [facility] Protein, Total 7.2 6.1 - 8.1 g/dL [facility] Albumin 4.2 3.6 - 5.1 g/dL [facility] Globulin 3.0 1.9 - 3.7 g/dL (calc) [facility] Albumin/Globuli n Ratio 1.4 1.0 - 2.5 (calc) [facility] [employer] [place] [facility] Bilirubin, Total 0.6 0.2 - 1.2 mg/dL [facility] [place] [facility] Alkaline Phosphatase 93 37 - 153 U/L [facility] [place] [facility] AST 14 10 - 35 U/L [facility] [employer] [place] [facility] ALT 11 6 - 29 U/L [facility] [place] [facility] Blood Venous blood specimen / Unknown 12/24/2024 9:40 AM EST 12/24/2024 9:54 AM EST Narrative [facility] - 12/30/2024 8:55 AM EST FASTING:YES FASTING: YES us Aniyah Hess ARBITRATOR LAB BLOOD ORDERABLES F inal Result [address], [place] [address] [facility] [place] [facility] [address] [place] [address] * XR Knee 3 Views Left (12/16/2024 12:41 PM EST) Only the most recent of2 resultswithin the time period is included. Anatomical Region Laterality Modality Lower Extremities, Knee Left Radiogra phic Imaging us Not In System Provider IMG XR PROCEDURES Final R esult * CT Pelvis w/o Contrast (12/16/2024 12:33 PM EST) Only the most recent of2 resultswithin the time period is included. Anatomical Region Laterality Modality Body, Pelvis Computed Tomogra phy us Not In System Provider IMG CT PROCEDURES Final R esult * (ABNORMAL) Comprensive Metabolic Panel (12/16/2024 11:30 AM EST) Sodium 143 136 - 145 mmol/L [facility] Potassium 3.78 3.5 - 5.1 mmol/L [facility] Chloride 103 98 - 107 mmol/L [facility] Carbon Dioxide 28 22 - 29 mmol/L [facility] Anion Gap 16 10 - 20 mmol/L [facility] Blood Urea Nitrogen 19 8 - 23 mg/dL [facility] Creatinine 0.82 0.51 - 0.95 mg/dl [facility] Estimated Glomerular Filt Rate 74 [facility] Comment:GFR Value: mL/min/1. 73 square metersCalculation: CKD-EPI Creatinine Equation (2020)Chronic Kidney Disease is defined as either of the followingpresent for >= 3 months: - GFR less than 60 mL/min/1.73 square meters. - Microalbumin:Ur. Creatinine Ratio >= 30 mg/g or other markers of kidney damageKidney failure is less than 15 mL/min/1.73 square metersThis test is not performed in patients under the age of 18. Glucose 87 82 - 115 mg/dL [facility] Calcium 9.8 8.8 - 10.2 mg/dL [facility] Bilirubin Total 0.4 0.2 - 1.2 mg/dL [facility] Aspartate Amino Transferase 15 5 - 32 U/L [facility] Alanine Aminotransferase <5(L) 5 - 33 U/L [facility] Total Protein 7.3 6.4 - 8.3 g/dL [facility] Albumin Level 4.2 3.5 - 5.2 g/dL [facility] Globulin 3.1 2.0 - 3.5 gm/dl [facility] Albumin Globulin Ratio 1.3 1.1 - 2.5 % [facility] Alkaline Phosphatase 106(H) 35 - 104 U/L [facility] 12/16/2024 11:3 0 AM EST 12/16/2024 11:32 AM EST us Generic External Data Provider HISTORICAL/NON OR DERABLE LABS Final Result [facility] [address] [place] [address] * (ABNORMAL) CBC auto differential (12/16/2024 11:30 AM EST) White Blood Count 7.53 3.5 - 11.0 K/uL [facility] Red Blood Count 3.25(L) 3.60 - 4.80 M/uL [facility] Hemoglobin 10.7(L) 12.0 - 16.0 g/dL [facility] Hematocrit 34.5(L) 36.0 - 48.0 % [facility] Mean Corpuscular Volume 106.2(H) 79.0 - 98.0 fL [facility] Mean Corpuscular Hemoglobin 32.9 25.4 - 34.6 pg [facility] Mean Corpuscular HGB Conc 31.0 30.0 - 36.0 g/dL [facility] Red Cell Distribution Width 13.3 11.5 - 14.5 % [facility] Platelet Count 224 150 - 400 K/uL [facility] Neutrophils Percent Auto 78.8(H) 35.0 - 66.0 % [facility] Lymphocytes Percent Auto 13.9(L) 25.0 - 45.0 % [facility] Monocytes Percent Auto 6.2 0.0 - 13.0 % [facility] Eosinophils Percent Auto 0.8 0.0 - 8.0 % [facility] Basophils Percent Auto 0.3 0.0 - 1.0 % [facility] Neutrophils Absolute Auto 5.93 1.5 - 7.5 K/uL [facility] Lymphocytes Absolute Auto 1.05 0.8 - 4.8 K/uL [facility] Monocytes Absolute Auto 0.47 0.4 - 1.3 K/uL [facility] Eosinophils Absolute Auto 0.06 0.0 - 0.8 K/uL [facility] Basophils Absolute Auto 0.02 0.0 - 0.6 K/uL [facility] 12/16/2024 11:3 0 AM EST 12/16/2024 11:32 AM EST us Generic External Data Provider LAB BLOOD ORDERAB LES Final Result [facility] [address] [place] [address] * XR HIPS MARILYN MIN 3V (12/16/2024 10:30 AM EST) Anatomical Region Laterality Modality Abdomen Radiographic Cassie ging 12/16/2024 10:3 0 AM EST Narrative 12/16/2024 10:30 AM EST ?[facility] ? [address] ?[place] [address] ? XRay Report ?Signed ? Patient: Juan,Jane ?MR#: [id number] ? : 1945 ?Acct:[id number] ? Age/Sex: 79 / F ?ADM Date: 01/27/25 ? Loc: HE.AER ? Attending Dr: ? Ordering Physician: Jamaal Pedro MD ?? Date of Service: 12/16/24 ?? Procedure(s): XR hip MARILYN min 3V ?? Accession Number(s): [id number] ? cc: Kenneth May ??DNP ? Study: ? XR hip MARILYN min 3V ? HISTORY: fall, hip pain ? Age: 79 years ? Gender: Female ? Comparison: Pelvis x-ray 06/21/2021. Right hip radiograph 11/30/2023. Left hip radiograph 11/30/2023. ? Additional information: 5 images. ? Specific views requested (if any): ? Findings: The bones appear mildly undermineralized, somewhat limiting the sensitivity for the detection of acute bony abnormality. ? No acute displaced fracture seen. ? No hip dislocation. ? 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 Findings appear progressed compared to prior right hip radiograph 2024. ? Left total hip prosthesis. No evidence of hardware compromise/hardware loosening seen. ? There are degenerative changes of the spine. ? Sclerosis/osteoarthritic changes of both sacroiliac joints, right greater than left. ? Atherosclerotic calcifications. ? Electronically Signed in PowerScribe By Candelario Wallace MD ? XR/XR hip MARILYN min 3V ?? Impression: ? No acute osseous abnormality seen. ? Significant degenerative changes within the right hip. ? See body of report. ? Dictated By: ?Candelario Rodrigo, MD ? Signed By: ?01/27/25 1124 ? DD/ 1030 ? TD/TT: 12/16/24 1046 ? Facialist: BF ? Procedure Note Dongermánter, Image - 12/16/2024 [facility] [address] [address] XRayReport Signed Patient: Jane MartinezMR#: [id number] : 1945cct:[id number] Age/Sex: 79 / FADM Date: 12/16/24 Loc: HE.AER Attending Dr: Ordering Physician: Jamaal Pedro MD Date of Service: 12/16/24 Procedure(s): XR hip MARILYN min 3V Accession Number(s): [id number] cc: Kenneth May DNP Study: XR hip MARILYN min 3V HISTORY: fall, hip pain Age: 79 years Gender: Female Comparison: Pelvis x-ray 06/21/2021. Right hip radiograph 11/30/2023. Lefthip radiograph 11/30/2023. Additional information: 5 images. Specific views requested (if any): Findings: The bones appear mildly undermineralized, somewhat limiting thesensitivity for the detection of acute bony abnormality. No acute displaced fracture seen. No hip dislocation. 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 Left total hip prosthesis. No evidence of hardware compromise/hardwareloosening seen. There are degenerative changes of the spine. Sclerosis/osteoarthritic changes of both sacroiliac joints, right greaterthan left. Atherosclerotic calcifications. Electronically Signed in Gigawattcribe By Candelario Wallace MD XR/XR hip MARILYN min 3V Impression: No acute osseous abnormality seen. Significant degenerative changes within the right hip. See body of report. Dictated By: Candelario Wallace MD Signed By:12/16/24 1124 DD/ 1030 TD/TT: 12/16/24 1046 Facialist: BF us Generic External Data Provider IMG XR PROCEDURES Final Result from Last 3 Months Insurance [employer] Care Teams Beet End Supervisor Relationship Specialty Start Date End Date Aniyah Hess FNP [address] [facility] [place] [address] PCP - General Family Medicine 10/16/24
--- OUTSIDE RECORDS SUMMARY | 2025-02-19 10:11 | XMS_ITS | Encounter Summary ---
Author Organization [facility] Address [address] [place] [address] Care Team Providers Care Fiberglass Dowel Drawing Operator Name Role Phone Sean Josue MD Primary Care Provider [phone] Santa Chaudhari MD Unavailable [phone] Encounter Details Date Type Department Care Team (Late st Contact Info) Description 08/22/2018 Scanned Document [facility] [place] at [address] [phone] Provider, Generic Social History Tobacco Use Types Packs/Day Years [...] on file Sexual Orientation Not on file documented as of this encounter Plan of Treatment Scheduled Orders Name Type Priority Associated Diagnoses Orde r Schedule ECG 12-LEAD ECG Ordered: 02/2018 documented as of this encounter Visit Diagnoses Not on filedocumented in this encounter Care Teams Fiberglass Dowel Drawing Operator Relationship Specialty Start Date End Date Sean Josue MD [address] [place] [address] PCP - General Internal Medicine 06/20/16 Santa Chaudhari MD [address] [address] Consulting Provider Surgery, Vascular 08/10/18 documented as of this encounter
--- OUTSIDE RECORDS SUMMARY | 2025-02-19 10:11 | XMS_ITS ---
Author Organization [facility] Address [address] [place] [address] Road [address] [place], [place] [id number] Care Team Providers Care Attic Fans Mechanic Name Role Phone Christiano Holt MD Primary Care Provider Dharmesh Reyez Unavailable [phone] Rosana Reeves Unavailable [phone] REASON FOR VISIT Follow up Encounters Encounter Location Date Provider Diagnosis [facility] [place], [place] [id number] 07/31/2024 Rosana Reeves Plan Of Treatment Next Appt Details Provider Name:Rosana figueredo, 08/08/2025 11:15:00 AM, [address] [place] [address], [address], [place], [place], [id number], Progress Notes * Jane MARTINEZDOB:[birth year] (78 yo F)Acc No.[id number]:07/31/2024 Patient:?Jane MARTINEZ :1945???Age:78 Y???Sex:Female Address:[address] [place] [address], [address] * true * Date:? Generated for Krystle dubose/Teofilo/eTransmitting on:?02/19/2025 10:10 AM EDT
== END 2025-02-19 09:47 | disposition home or self-care (01) ==
PROVIDERS: Visit Provider Internal Medicine Cardiovascular Disease
DX: I48.0 Paroxysmal atrial fibrillation (principal); I10 Essential (primary) hypertension
CPT/HCPCS: 99214; G2211

== ENCOUNTER → 2025-02-19 09:13 | Outpatient (BNVA) | payer MEDICARE, SELFPAY | PROVIDERS: PCP Family Medicine; Visit Provider Internal Medicine Cardiovascular Disease | DX: I48.0 Paroxysmal atrial fibrillation (principal); I10 Essential (primary) hypertension | CPT/HCPCS: 99212 ==

== ENCOUNTER → 2025-03-24 10:38 | Outpatient (REF) | payer MEDICARE, SELFPAY ==
--- NOTE | 2025-03-24 10:42 | CA_ITS ---
Transthoracic Echocardiogram Patient (Last, First, Middle): Jane Martinez, Gender: Female Date of : 1945 Age: 79 Procedure Date: 03/24/2025 Procedure Type: Transthoracic Echocardiogram Location: OP Height: 162.56 cm Weight: 92.53 kg BSA: 1.97 m2 Heart Rate: 59 bpm BP: 130 / 68 mmHg Treatment Plant Operator: GIACOMO Referring MD: Fidencio Shabazz MD Symptoms: I48.0 - Paroxysmal atrial fibrillation Study Quality: Adequate ECG Rhythm: Bradycardia Conclusions: - The left ventricular systolic function is normal. The calculated ejection fraction is 62% by biplane method. - No obvious valvular pathology seen on this study. Findings Procedure Information Contrast agent, definity, is being given per protocol without apparent complications. The quality of the study was technically difficult. The study quality is limited by patients body habitus. Left Ventricle Normal left ventricular cavity size. There is normal left ventricular wall thickness. The left ventricular systolic function is normal. The calculated ejection fraction is 62% by biplane method. There is no evidence of regional wall motion abnormalities. Diastolic function is normal for age. Right Ventricle Normal right ventricular cavity size and systolic function. Atria Both atria are normal in size. Aortic Valve There is a normal trileaflet aortic valve. There is no aortic valve stenosis. There is no aortic valve regurgitation. Mitral Valve The mitral valve appears normal. There is no mitral valve regurgitation. There is no mitral valve stenosis. Pulmonic Valve The pulmonic valve is likely normal. Tricuspid Valve There is no tricuspid valve regurgitation. Tricuspid regurgitation envelope is inadequate for calculation of right ventricular systolic pressure. Great Vessels The asc aorta is normal in size. Venous The inferior vena cava is normal in size and collapses greater than 50% with inspiration. Pericardium/Pleural There is no evidence of pericardial effusion. Prior Study Comparison No prior study available for comparison. Recommendations, Care & Conclusions No obvious valvular pathology seen on this study. Measurements 2D Linear Measurements IVSd: 1.02 0.6-0.9/0.6-1.0 cm LVIDd: 4.58 3.9-5.3/4.2-5.9 cm LVIDd Index: 2.32 2.4-3.2/2.2-3.1 cm/m2 LVIDs: 3.29 2.0-3.6 cm LVPWd: 0.98 0.7-1.1 cm LA Diam: 3.60 2.7-3.8/3.0-4.0 cm LAIDs Index: 1.83 1.5-2.3 cm/m2 LV Mass: 195.83 67-162/88-224 g LV Mass Index: 99.41 43-95/49-115 g/m2 LVOT Diam: 2.20 3.0+(-)1.3 cm 2D Systolic Function EF 4C: 60.80 >55% EF 2C: 64.00 >55% EF BiP: 62.20 >55% Mitral Valve MV Pk E: 0.84 MV PK A: 0.88 MV Decel Time: 189.00 E/A: 1.00 E'Lateral: 7.29 E'Medial: 7.18 E/E' Med: 11.70 E/E' Lat: 11.50 PHT: 55.00 MVA PHT: 4.00 Decel Spink: 4.45 Aortic Valve AoV Pk Mike: 1.21 AoV Pk Grad: 6.00 KATHYA: 2.54 LVOT LVOT Pk Mike: 0.89 LVOT Mn Mike: 0.62 LVOT VTI: 0.22 LVOT Pk Grad: 3.00 LVOT Mn Grad: 2.00 LVOT Diam: 2.20 LVOT Area: 3.80 Diastolic Function MV Pk E: 0.84 MV Pk A: 0.88 E/A: 1.00 E'Medial: 7.18 E/E' Med: 11.70 E' Laterial: 7.29 E/E' Lat: 11.50 Right Ventricle TAPSE (mm): 24.90 TVS' Mike: 11.00 Tricuspid Valve RA Press: 3.00 Great Vessels Aorta Sinus of Valsalva: 2.90 2.0-3.5 cm Ao Asc: 3.20 2.1-3.4 cm Pulmonary Veins Pulm Vein S/D 1.90 Pulmonary Valve PV Pk Mike: 0.69 Peak PV Grad: 2.00 Updated in Other Vendor System with Status of Final Soy Morrell MD electronically signed on 03/25/2025 4:10:17 PM with status of Final
--- OUTSIDE RECORDS SUMMARY | 2025-03-24 12:05 | XMS_ITS | Encounter Summary ---
Author Organization [employer] Address [address] [facility] 7t [place] [address] Care Team Providers Care Home Comfort Advisor Name Role Phone Aniyah Hess [facility] Primary Care Provider Encounter Details Date Type Department Care Team (Late st Contact Info) Description 12/25/2024 Telephone [facility] [address] [facility] [address] [place] [phone] Aniyah Hess FNP [address] [place] [address] Social History Tobacco Use Types [...] 12:14 PM EST Printed hip X-ray from [facility], placed in scanning * Telephone Encounter - Genna Linn - 12/25/2024 11:13 AM EST Jane left VM states Aniyah Romero wanted her to get an Xray on hip, but she remembered they did an Xray at [facility] and she called them to have them mail a copy over to Aniyah Maldonadofor Aniyah to look at. Call back #[phone] documented in this encounter Plan of Treatment Not on file documented as of this encounter Visit Diagnoses Not on filedocumented in this encounter Care Teams Home Comfort Advisor Relationship Specialty Start Date End Date Aniyah Hess FNP [address] [facility] [place] [address] PCP - General Family Medicine 10/16/24 documented as of this encounter
--- OUTSIDE RECORDS SUMMARY | 2025-03-24 12:05 | XMS_ITS | Clinical Summary ---
Author Organization [facility] Address [address] [place] [address] Care Team Providers Care Account Support Specialist Name Role Phone Sean Josue MD Primary Care Provider [phone] Santa Chaudhari MD Unavailable [phone] Allergies Active Allergy Reactions Criticality Noted Date Comments Oxycodone-Acetaminophen Hives Medium 07/04/2016 Tyloxapol Other (See Comments) Medium 02/06/2017 Nightmares Medications losartan-hydrochlo rothiazide (HYZAAR) 100-12.5 MG per tablet TK 1 T PO ONCE Day. DO not take morning of surgery. 8 6 Active sertraline (ZOLOFT) 50 MG tablet Take 100 mg by mouth daily. Take morning of surgery. 6 Active albuterol (PROVENTIL HFA; VENTOLIN HFA) 108 (90 BASE) MCG/ACT inhaler Inhale 2 puffs 4 times daily (every 6 hours) as needed for wheezing. Okay to use the morning of surgery as needed. Active atorvastatin (LIPITOR) 80 MG tablet Take 80 mg by mouth nightly. Take night before surgery 8 Active fluticasone (FloNASE) 50 mcg/spray nasal spray 1 spray into each nostril as needed for rhinitis or allergies. May use day of surgery if needed. 8 Active metoPROLOL SUCCINATE (TOPROL-XL) 25 MG 24 hr tablet Take 25 mg by mouth daily. Take morning of surgery. 8 Active amLODIPine (NORVASC) 5 MG tablet Take [...] coated (ECOTRIN LOW STRENGTH) 81 MG EC tabletIndications: Osteoarthritis of left hip, unspecified osteoarthritis type Take 1 tablet (81 mg total) by mouth daily. Resume 09/22/18 after completing 4 weeks Xarelto 28 tablet 8 Active clopidogrel (PLAVIX) 75 MG tabletIndications: Osteoarthritis of left hip, unspecified osteoarthritis type Take 1 tablet (75 mg total) by mouth nightly. Resume on post-op day#3, 08/26/18 3 8 Active HYDROmorphone (DILAUDID) 2 MG tabletIndications: Osteoarthritis of left hip, unspecified osteoarthritis type Take 1-2 tablets (2-4 mg total) by mouth every 3 (three) hours as needed for moderate pain or severe pain. Max Daily Amount: 32 mg 60 tablet 8 Active rivaroxaban (XARELTO) 10 MG tabletIndications: Osteoarthritis of left hip, unspecified osteoarthritis type Take 1 tablet (10 mg total) by mouth every evening with dinner. 28 tablet 8 Active Family History Medical History Relation Name [...] of Binge Drinking Not on file 07/22 Comments Unknown Sex and Gender Information Value Date Recorded Sex Assigned at Not on file Legal Sex Female 4:25 PM EDT Gender Identity Not on file [...] Patients (1 - 1-dose 75+ series) 2022 COVID-19 Vaccine ( - 2023-2 5 season) 2024 Influenza Vaccine 06/20/2025 Hepatitis B Vaccines Aged Out No long er eligible based on patient's age to complete this topic Medical Devices Implanted Type Area Spearer Device Identifier Shelf Expiration Date Model / Serial / Lot [facility] Psl Garza Solid Back Acetabular Shell 52mm E Implanted:Qty : 1 on 08/23/2018 by Ramana Crain MD at [facility] Joint Prosthesis Left: Hip [employer] - DIV STRY [id number] 01/09/2023 540-11-5 2E / / [id number] Liner Acetabular Trdnt 10d E 5.9mm 36mm X3 Hip - [id number] Implanted:Qty : 1 on 08/23/2018 by Ramana Crain MD at [facility] Joint Prosthesis Left: Hip [employer] DIV STRY [id number] 04/03/2023 623-10-3 6E / / [id number] Stem Femoral 111mm Mdmarta Acld 127d 6 Taper 35mm Hip Sterl - [id number] Implanted:Qty : 1 on 08/23/2018 by Ramana Crain MD at [facility] Joint Prosthesis Left: Hip [employer]Y [id number] 05/25/2023 6721-063 5 / / [id number] Head Femoral +0mm Offset Taper 36mm Hip Blx D V40 Sterl - [id number] Implanted:Qty : 1 on 08/23/2018 by Ramana Crain MD at [facility] Joint Prosthesis Left: Hip [employer] - DIV STRY [id number] 05/17/2023 6570-0-1 36 / / [id number] Insurance MEDICARE Advance Directives * Full Code (Latest Code Status on File) Date Activated Date Inactivated Comments 08/23/2018 7:45 PM Care Teams Account Support Specialist Relationship Specialty Start Date End Date Sean Josue MD [address] [place] [address] PCP - General Internal Medicine 06/20/16 Santa Chaudhari MD [address] [place] [address] Consulting Provider Surgery, Vascular 08/10/18
--- OUTSIDE RECORDS SUMMARY | 2025-03-24 12:05 | XMS_ITS | Encounter Summary ---
Author Organization [employer] Address [address] [facility] 7t [place] [address] Care Team Providers Care Tangled Yarn Spool Straightener Name Role Phone Aniyah Hess [facility] Primary Care Provider Encounter Details Date Type Department Care Team (Late st Contact Info) Description 03/03/2025 Telephone [facility] [address] [facility] [address] [place] [phone] Aniyah Hess FNP [address] [place] [address] Social History Tobacco Use Types [...] encounter Miscellaneous Notes * Telephone Encounter - Cookie Perez - 03/03/2025 10:46 AM EDT Santa called from Cardiovascular just checking the status on referral. Aware it is in process. documented in this encounter Plan of Treatment Not on file documented as of this encounter Visit Diagnoses Not on filedocumented in this encounter Care Teams Tangled Yarn Spool Straightener Relationship Specialty Start Date End Date Aniyah Hess FNP [address] [facility] [place] [address] PCP - General Family Medicine 10/16/24 documented as of this encounter
--- OUTSIDE RECORDS SUMMARY | 2025-03-24 12:05 | XMS_ITS | Encounter Summary ---
Author Organization [employer] Address [address] [facility] 7t [place] [address] Care Team Providers Care Plant Breeder Name Role Phone Aniyah Hess [employer] Primary Care Provider Encounter Details Date Type Department Care Team (Late st Contact Info) Description 02/19/2025 Telephone [facility] [address] [facility] [address] [place] [phone] Aniyah Hess FNP [address] [place] [address] Social History Tobacco Use Types [...] on filedocumented in this encounter Care Teams Plant Breeder Relationship Specialty Start Date End Date Aniyah Hess FNP [address] [facility] [place] [address] PCP - General Family Medicine 10/16/24 documented as of this encounter
--- OUTSIDE RECORDS SUMMARY | 2025-03-24 12:05 | XMS_ITS | Encounter Summary ---
Author Organization [facility] Address [address] [place] [address] Care Team Providers Care Deportation Officer Name Role Phone Sean Josue MD Primary Care Provider [phone] Santa Chaudhari MD Unavailable [phone] Encounter Details Date Type Department Care Team (Late st Contact Info) Description 08/22/2018 Scanned Document [facility] [place] at [address] [phone] Provider, Generic Social History Tobacco Use Types [...] on filedocumented in this encounter Care Teams Deportation Officer Relationship Specialty Start Date End Date Sean Josue MD [address] [place] [address] PCP - General Internal Medicine 06/20/16 Santa Chaudhari MD [address] [address] Consulting Provider Surgery, Vascular 08/10/18 documented as of this encounter
--- OUTSIDE RECORDS SUMMARY | 2025-03-24 12:05 | XMS_ITS | Clinical Summary ---
Author Organization [employer] Address [address] [facility] 7[address] [place] [address] Care Team Providers Care Pullman Car Repairer Name Role Phone Aniyah Hess HEEL COMPRESSOR Primary Care Provider Allergies Active Allergy Reactions Criticality Noted Date Comments Oxycodone Other Medium 10/11/2024 nightmares Sulfamethoxazole-Trimethoprim Unknown Medium 2018 Tyloxapol Other Medium 02/06/2017 Nightmares Medications ProAir HFA 108 (90 Base) MCG/ACT inhaler Inhale. 07/13/20 18 Active gabapentin (Neurontin) 300 MG capsule Take 3 capsules by mouth every 6 (six) hours during the day. 07/03/20 24 Active metoprolol succinate XL (Toprol-XL) 25 MG 24 hr tablet Take by mouth. 04/24/20 18 Active omega-3 (Fish Oil) 1000 MG capsule Take by mouth. 07/13/20 18 Active timolol (Timoptic) 0.5 % ophthalmic solution INSTILL 1 DROP INTO LEFT EYE IN THE MORNING 08/04/20 24 Active furosemide (Lasix) 20 MG tablet 20 mg Once per day. As needed Active acetaminophen-c odeine (Tylenol w/ Codeine #4) 300-60 MG tablet 1 tablet 2 times daily. Prn hip pain Active metFORMIN XR (Glucophage-XR) 500 MG 24 hr tablet Take 2 tablets (1,000 mg) by mouth with evening meal. Do not crush, chew, or split. 360 tablet 12/25/19 25 Active Eliquis 5 MG tablet Take 1 tablet (5 mg) by mouth 2 times daily. 180 tablet 3 01/03/20 25 Active amLODIPine (Norvasc) 5 MG tabletIndicatio ns:Hypertension , unspecified type Take 1 tablet (5 mg) by mouth Once per day. 90 tablet 3 02/28/20 25 Active sertraline (Zoloft) 100 MG tabletIndicatio ns:Other depression Take 2 tablets (200 mg) by mouth in the morning. 180 tablet 3 02/28/20 25 Active amLODIPine (Norvasc) 5 MG tablet Take by mouth. 07/13/20 18 025 Discontinued(Re order (will not trigger notification to Pharmacy)) sertraline (Zoloft) 100 MG tablet Take 2 tablets by mouth in the morning. 09/27/20 24 025 Discontinued(Re order (will not trigger notification to Pharmacy)) Active Problems Problem Noted Date Diagnosed Date [...] Encounters Date Type Department Care Team Description 03/17/2025 Orders Only GENERIC CTC DEPARTMENT Harsh Gil 03/03/[address] [place] [address] Aniyah Hess FNP 02/26/[address] [place] [address] Aniyah Hess FNP Hypertension, unspecified type; Other depression 02/20/[address] [place] [address] Aniyah Hess FNP 02/19/[address] [place] [address] Aniyah Hess FNP 02/18/2025 8:20 AM EDT Office Visit [address] [place] [address] Aniyah Hess FNP Person consulting for explanation of examination or test finding (Primary Dx) 02/17/2025 9:00 AM EDT Clinical Support [address] [place] [address] Aniyah Hess FNP Memory loss 01/03/[address] [place] [address] Aniyah Hess, HEEL COMPRESSOR 01/02/2025 Refill [facility] [address] [facility] [address] [place] [address] Aniyah Hess, HEEL COMPRESSOR 12/30/2024 Orders Only [facility] [address] [facility] [place] [address] Provider, Not In System 12/25/2024 Telephone [facility] [address] [place] [address] Aniyah Hess, HEEL COMPRESSOR 12/25/2024 Refill [facility] [address] [address] [place] [address] Aniyah Hess, TARSHA from Last 3 Months Immunizations Name Administration [...] 12/24/19 SDOH Screening 12/24/2025 12/24/2024 Tobacco Screening 02/19/2026 02/19/2025 Lipid Panel 12/24/2029 12/24/2024 Pneumococcal Vaccine: 50+ [...] Name Priority Date/Time Associated Diagnosis Comments XR HIP RIGHT WITH PELVIS 1 VIEW Routine 03/17/2025 8:58 AM EDT AMB REFERRAL TO ORTHOPAEDIC SURGERY Routine 03/17/2025 Arthritis of right hip HEPATITIS C AB W/REFL TO HCV RNA, QN, PCR Routine 12/24/2024 9:40 AM EST Primary hypertension Screening for viral disease LIPID PANEL WITH REFLEX TO DIRECT LDL Routine 12/24/2024 9:40 AM EST Hypercholesterolemi a from Last 3 Months or Most Recently Relevant to Health Maintenance Results * XR Hip right with Pelvis 1 view (03/17/2025 8:58 AM EDT) Anatomical Region Laterality Modality Lower Extremities, Hip Bilateral Radiograp hic Imaging 03/17/2025 8:58 AM EDT Narrative 03/17/2025 8:58 AM EDT ?[facility] ? [address] ?[place] [address] ? XRay Report ?Signed ? Patient: Juan,Jane ?MR#: [id number] ? : 1945 ?Acct:[id number] ? Age/Sex: 79 / F ?ADM Date: 03/17/25 ? Loc: [facility] ? Attending Dr: Harsh Gil MD ? Ordering Physician: Harsh Gil MD ?? Date of Service: 03/17/25 ?? Procedure(s): XR hip RT w PEL1V ?? Accession Number(s): [id number] ? cc: Kenneth May ??DNP ? Examination: XR Hip Right with Pelvis ? Technique: Radiographs of the Right hip(s) with 1 ??view pelvis ? INDICATION: Right hip pain ? COMPARISON: None ? FINDINGS: ? Severe axial joint space and subchondral cystic change and sclerosis is noted at the right hip. Heterotopic ossifications about the right hip. No acute fracture. Included right hemipelvis and pubic rami appear intact. The patient is status post left hip arthroplasty with cemented femoral component isn't included. ? There is degenerative disc disease and facet arthropathy of the lumbar spine from inferior endplate of L4. ? XR/XR hip RT w PEL1V ?? IMPRESSION: ? Axial joint space narrowing with subchondral degenerative sclerosis and cystic change of the [place] right hip. No acute fracture or joint dislocation. No focal aggressive osseous lesion. ? Degenerative disc disease at the lumbar spine and facets to the extent included. Intact partially included left hip arthroplasty. ? Electronically Signed By: Horace Hood ?On: 03/17/25 1425 ? Dictated By: ?Horace Hood ?03/17/25 0858 ?? Signed By: ?Horace Hood ?03/17/255 ?? Procedure Note Jace, Image - 03/17/2025 [facility] [address] [address] XRayReport Signed Patient: Jane MartinezMR#: [id number] : 7Acct:[id number] Age/Sex: 79 / FADM Date: 03/17/25 Loc: [facility] Attending Dr: Harsh Gil MD Ordering Physician: Harsh Gil MD Date of Service: 03/17/25 Procedure(s): XR hip RT w PEL1V Accession Number(s): [id number] cc: Kenneth May DNP Examination: XR Hip Right with Pelvis Technique: Radiographs of the Right hip(s) with 1 view pelvis INDICATION: Right hip pain COMPARISON: None FINDINGS: Severe axial joint space and subchondral cystic change and sclerosis isnoted at the right hip. Heterotopic ossifications about the right hip. No acute fracture. Included right hemipelvis and pubic rami appear intact.The patient is status post left hip arthroplasty with cemented femoral component isn't included. There is degenerative disc disease and facet arthropathy of the lumbarspine from inferior endplate of L4. XR/XR hip RT w PEL1V IMPRESSION: Axial joint space narrowing with subchondral degenerative sclerosis andcystic change of the [place] right hip. No acute fracture or jointdislocation. No focal aggressive osseous lesion. Degenerative disc disease at the lumbar spine and facets to the extentincluded. Intact partially included left hip arthroplasty. Electronically Signed By: Horace Hood MD On: 03/17/25 1425 Dictated By: Horace Hood MD03/17/25 0858 Signed By: Horace Hood MD03/17/25 1425 Harsh Gil IMG XR PROCEDURES Final Result * Referral to Orthopaedic Surgery (03/17/2025) Aniyah Hess HEEL COMPRESSOR OUTPATIENT REFERRAL OR DERABLES Final Result * (ABNORMAL) Lipid Panel with Reflex to Direct LDL (12/24/2024 9:40 AM EST) Cholesterol, Total 230(H) <200 mg/dL [facility] HDL Cholesterol 67 > OR = 50 mg/dL [facility] Triglycerides 112 <150 mg/dL [facility] LDL Cholesterol 140(H) mg/dL [facility] [employer] Comment: Reference range: <100 Desirable range <100 mg/dL for primary prevention; ?? <70 mg/dL for patients with CHD or diabetic patients with > or = 2 CHD risk factors. LDL-C is now calculated using the Ji-Phoebe calculation, which is a validated novel method providing better accuracy than the Friedewald equation in the estimation of LDL-C. Ji SS et al. NI. 2013;310(19): 8098-4299 (http://education.[employer]/faq/WXB662) Chol/HDLC Ratio 3.4 <5.0 (calc) [facility] Non-HDL Cholesterol 163(H) <130 mg/dL [facility] Comment: For patients with diabetes plus 1 major ASCVD risk factor, treating to a non-HDL-C goal of <100 mg/dL (LDL-C of <70 mg/dL) is considered a therapeutic option. Blood 12/24/2024 9:40 AM EST 12/24/2024 9:54 AM EST Narrative [facility] - 12/30/2024 8:55 AM EST FASTING:YES FASTING: YES Aniyah Hess [facility] LAB BLOOD ORDERABLES F inal Result Performing Organization Address [facility] de Phone Number [employer] [address] [place] [address], [place] [address] [email or web address] [address] [place] [phone] * Hepatitis C Antibody with Reflex to HCV, RNA, Quantitative, Real-Time PCR (12/24/2024 9:40 AM EST) Pathologist [facility] Hepatitis C Antibody NON-REACT CARLTON NON-REACT CARLTON [email or web address] Comment: HCV antibody was non-reactive. There is no laboratory evidence of HCV infection. In most cases, no further action is required. However, if recent HCV exposure is suspected, a test for HCV RNA (test code 07121) is suggested. For additional information please refer to http://education.[employer]/faq/YXN64v6 (This link is being provided for informational/ educational purposes only.) Blood Venous blood specimen / Unknown 12/24/2024 9:40 AM EST 12/24/2024 9:54 AM EST Narrative [facility] - 12/30/2024 8:55 AM EST FASTING:YES FASTING: YES Result [facility] Aniyah Hess [facility] LAB BLOOD ORDERABLES F inal Result Performing Organization Address [facility] Co de Phone Number [address], [facility] [place] [address] [email or web address] [address] [place] [phone] from Last 3 Months or Most Recently Relevant to Health Maintenance Insurance [employer] Care Teams Pullman Car Repairer Relationship Specialty Start Date End Date Aniyah Hess FNP [address] [facility] [place] [address] PCP - General Family Medicine 10/16/24
--- OUTSIDE RECORDS SUMMARY | 2025-03-24 12:05 | XMS_ITS | Encounter Summary ---
Author Organization [employer] Address [address] [facility] 7t [place] [address] Care Team Providers Care Conduit Worker Name Role Phone Aniyah Hess [facility] Primary Care Provider Encounter Details Date Type Department Care Team (Late st Contact Info) Description 02/20/2025 Telephone [facility] [address] [facility] [address] [place] [phone] Aniyah Hess FNP [address] [place] [address] Social History Tobacco Use Types [...] encounter Miscellaneous Notes * Telephone Encounter - Roberta Peralta - 02/20/2025 10:06 AM EDT Verified Insurance: Yes Referral Office: [facility] , cardiovascular Diagnosis Code: i48.0 Number of Visits Needed: 6 NPI# of Facility: NPI# of Provider being referred to: [id number] Phone #: [phone] Fax #: [phone] Date of Service 02/19/2025 documented in this encounter Plan of Treatment Not on file documented as of this encounter Visit Diagnoses Not on filedocumented in this encounter Care Teams Conduit Worker Relationship Specialty Start Date End Date Aniyah Hess FNP [address] [place] [address] PCP - General Family Medicine 10/16/24 documented as of this encounter
--- OUTSIDE RECORDS SUMMARY | 2025-03-24 12:05 | XMS_ITS | Clinical Summary ---
Author Organization [facility] Address [address] [place] [address] Care Team Providers Care Data Center Operator Name Role Phone Marty Woodard Primary Care [...] Date Smoking Tobacco: Never Assessed Comments:Smoking Status:Toba district manager major accounts sales use:Sleep Medicine Migration - Source Name: Tobacco [...] ( - 2023-2 5 season) 2024 Influenza (Season Ended) 2025 HPV Vaccine Aged Out No longer eligi [...] Smear Discontinued Zoster (Zostavax) Discontinued Care Teams Data Center Operator Relationship Specialty Start Date End Date Marty Woodard PCP - General 06/26/23
--- OUTSIDE RECORDS SUMMARY | 2025-03-24 12:05 | XMS_ITS | Encounter Summary ---
Author Organization [employer] Address [address] [facility] 7t [place] [address] Care Team Providers Care Brokerage Clerk Name Role Phone Aniyah Hess RESOURCE MANAGEMENT PLANNER Primary Care Provider Encounter Details Date Type Department Care Team (Late st Contact Info) Description 12/30/2024 Orders Only [facility] [address] [place] [address] Provider, Not In System Social History Tobacco [...] on filedocumented in this encounter Care Teams Brokerage Clerk Relationship Specialty Start Date End Date Aniyah Hess FNP [address] [facility] [place] [address] PCP - General Family Medicine 10/16/24 documented as of this encounter
--- OUTSIDE RECORDS SUMMARY | 2025-03-24 12:05 | XMS_ITS | Clinical Summary ---
Author Organization [facility] Address [address] [place] [address] Phone Care Team Providers Care Pilot Boat Operator Name Role Phone Dangelo REDMOND RVT Kenneth BISHOP Yu [phone] Conditions or Problems Problem Name Problem Code Onset Date Status Entry Date Provider Comment Standard Description Annotate CAROTID STENOSIS 37100583 (SNOMED CT) Active Amy Londono Carotid artery stenosis Medications Medication Instructions Start Date Stop Date Generic Name NDC Provider ALBUTEROL SULFATE ER TABLET EXTENDED RELEASE 12 HOUR 6 ALBUTEROL SULFATE ER TABLET EXTENDED RELEASE 12 HOUR [id number] Amy Londono [facility] FISH OIL 1000 MG CAPS 6 OMEGA-3 FATTY ACIDS [id number] Amy Morenoms ANIMI-3 1 MG ORAL CAPSULE 6 [id number]-[id number]-OME GA 3-PHYTOSTER 70888114767 Amy Londono ADULT ASPIRIN REGIMEN 81 MG TBEC 6 ASPIRIN 85961325439 Amy Morenoms ATORVASTATIN CALCIUM 80 MG TABS 6 ATORVASTATIN CALCIUM 36135922216 Amy Morenoms LOSARTAN POTASSIUM-HCTZ 100-12.5 MG TABS 6 LOSARTAN POTASSIUM-HCTZ 73988229272 Amy Morenoms AMLODIPINE BESYLATE 5 MG TABS 6 AMLODIPINE BESYLATE 88383982101 Amy Morenoms KAPSPARGO SPRINKLE 25 MG CS24 6 METOPROLOL SUCCINATE 76293103276 Amy Londono SERTRALINE HCL 100 MG TABS 6 SERTRALINE HCL 18298359494 Amy Bry Medications Administered No information available. Allergies, Adverse Reactions, Alerts Allergy Name Reaction Description Start Date Severity Statu s Provider MARTIN NGUYENJOE Critical Jean kapil Londono Results No information available. Plan of Care No information available. Procedures No information available. Vital Signs No information available. Immunizations No information available. Advance Directives No information available.
== END ==
LOC: HO.CARD 10:38
PROVIDERS: Visit Provider Internal Medicine Cardiovascular Disease
DX: I48.0 Paroxysmal atrial fibrillation (principal)
CPT/HCPCS: 93270; 93306; Q9957

== ENCOUNTER → 2025-03-24 10:42 | Outpatient (BNV) | payer MEDICARE, SELFPAY | PROVIDERS: Visit Provider Internal Medicine | DX: I48.0 Paroxysmal atrial fibrillation (principal) | CPT/HCPCS: 93306 ==